=== PATIENT | male | born 1980 | race American Indian/Alaskan Native ===

== ENCOUNTER 2023-01-09 03:54 | Emergency (ER) | payer MEDICAID ==
[2023-01-09 04:05] VITALS: TEMP 98
--- NOTE | 2023-01-09 04:33 | ERPHSYRPT ---
- History of Present Illness Source: patient, EMS Exam Limitations: no limitations Patient Subjective Stated Complaint: pt states "I have been nauseous and feeling short of breath for a while. There is something wrong with my kidneys too." Triage Nursing Assessment: pt presents to ED via [facility], pt alert and oriented x3, skin pwd, pt c/o nausea and shortness of breath that has been on going for months, pt denies any pulmonary hx, pt is type 2 diabetic, partial L foot amputation noted, pt has hx of stage 4 kidney disease Timing/Duration: other (2 wks) Severity: moderate Modifying Factors: Improves With: nothing Associated Symptoms: nausea, vomiting, abdominal pain Hx Tetanus, Diphtheria Vaccination/Date Given: Yes Hx Influenza Vaccination/Date Given: No Hx Pneumococcal Vaccination/Date Given: No Immunizations Up to Date: Yes <NOHELIA ROBBINS - Last Filed: 01/09/23 07:03> <LUDA VILLA - Last Filed: 01/09/23 11:47> - History of Present Illness Time Seen by Provider: 01/09/23 07:00 Physician History: 42 yo WM from an out lying Co w N/V x 3wks, cough x 2wks, subjective fever, periumbilical pain rated 9/10, and a chronic R foot ulcer. pt has a h/o DM/CRI/diabetic retinopathy. He has mild dyspnea but denies chest pain/melena/hematochezia/diarrhea/dysuria/hematuria. Pt was seen in [facility] ER on 01/03/23 and was started on an antibiotic. (NOHELIA ROBBINS) Allergies/Adverse Reactions: No Known Drug Allergies Allergy (Verified 01/09/23 04:03) Home Medications: Aspirin 81 gm Chew [Baby Aspirin 81 mg Chew] 324 mg PO DAILY 01/09/23 [History] Clonidine HCl 0.1 mg [Clonidine 0.1 mg Tablet] 0.3 mg PO HS 01/09/23 [History] Dapagliflozin Propanediol [Farxiga] 10 mg PO DAILY 01/09/23 [History] Metformin HCl 500 mg [Glucophage 500 MG] 1,000 mg PO DAILY 01/09/23 [History] lisinopriL [Lisinopril] 20 mg PO BID 01/09/23 [History] Travel Risk - International Travel Have you traveled outside of the country in past 3 weeks: No - Coronavirus Screening Are you exhibiting any of the following symptoms?: No Close contact with a COVID-19 positive Pt in past 14-21 Days: No - Vaccine Status Have you recieved a Covid-19 vaccination: Yes 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: [employer] <NOHELIA ROBBINS - Last Filed: 01/09/23 07:03> - Review of Systems Constitutional: No Symptoms, Fever, Malaise Eyes: No Symptoms Ears, Nose, & Throat: No Symptoms Respiratory: No Symptoms, Cough, Dyspnea Cardiac: No Symptoms Abdominal/Gastrointestinal: Nausea, Vomiting, No Diarrhea Genitourinary Symptoms: No Symptoms Musculoskeletal: No Symptoms Skin: No Symptoms Neurological: No Symptoms Psychological: No Symptoms Endocrine: No Symptoms Hematologic/Lymphatic: No Symptoms Immunological/Allergic: No Symptoms <NOHELIA ROBBINS - Last Filed: 01/09/23 07:03> - Past Medical History Pertinent Past Medical History: Yes Neurological History: Migraines ENT History: Other Cardiac History: Hypertension Respiratory History: No Pertinent History Endocrine Medical History: Diabetes Type II History: Renal Disease Psycho-Social History: No Pertinent History Other Medical History: blind, stage 4 disease kidney - Past Surgical History Past Surgical History: Yes Neuro Surgical History: No Pertinent History Cardiac: No Pertinent History Respiratory: No Pertinent History Gastrointestinal: No Pertinent History Genitourinary: No Pertinent History Musculoskeletal: Amputation, Orthopedic Surgery Male Surgical History: No Pertinent History - Social History Smoking Status: Former smoker Exposure to second hand smoke: No Drug Use: none Patient Lives Alone: No <ROSENDONOHELIA - Last Filed: 01/09/23 07:03> - Physical Exam General Appearance: no apparent distress Eye Exam: PERRL/EOMI, eyes nml inspection Ears, Nose, Throat Exam: normal ENT inspection, TMs normal, pharynx normal, moist mucous membranes Neck Exam: normal inspection, non-tender, supple, full range of motion, No meningismus, No mass, No Brudzinski, No Kernig's, No carotid bruit Respiratory Exam: normal breath sounds, lungs clear, airway intact, No respiratory distress Cardiovascular Exam: regular rate/rhythm, normal heart sounds, normal peripheral pulses, capillary refill <2 sec, No murmur Gastrointestinal/Abdomen Exam: soft, normal bowel sounds, tenderness (Mild ning- umbilical TTP wo guarding or rebound) Back Exam: normal inspection, normal range of motion, No CVA tenderness, No vertebral tenderness Extremity Exam: other (R calcaneal foot ulcer w surrounding cellulitis) Neurologic Exam: alert, oriented x 3, cooperative, insurance claims examiner II-XII nml as tested, normal mood/affect, nml station & gait, sensation nml Skin Exam: normal color, warm, dry Lymphatic Exam: No adenopathy SpO2 Interpretation: normal SpO2: 100 O2 Delivery: Room Air <NOHELIA ROBBINS - Last Filed: 01/09/23 07:03> - Nursing Vital Signs Nursing Vital Signs: Initial Vital Signs Temperature 98.0 F 01/09/23 04:04 Pulse Rate 84 01/09/23 04:04 Respiratory Rate 19 01/09/23 04:04 Blood Pressure 170/94 01/09/23 04:04 O2 Sat by Pulse Oximetry 100 01/09/23 04:04 Pain Scale Pain Intensity 0 Hypertensive (NOHELIA ROBBINS) - Course EKG Interpreted by Me: RATE (NSR/Rate 82/Normal QT-QTc/[place]/No acute ST segment changes) <NOHELIA ROBBINS - Last Filed: 01/09/23 07:03> - Course Nursing assessment & vital signs reviewed: Yes - CT Exams Chest CT Interpretation: Tele-radiologist Report (2 cavitary lesions with mural soft tissue nodules in the left lung and differential diagnosis TB infection septic emboli pneumatocele with fungus ball, similar to aspergilloma and systemic diseases like polyangiitis few calcified mediastinal lymphadenopathy) Abdomen/Pelvis CT Interpretation: Tele-radiologist Report (Mild hepatomegaly with few scattered calcific foci, few scattered splenic calcific foci, healed old granulomatous infection.) <LUDA VILLA - Last Filed: 01/09/23 11:47> Ordered Tests: Active Orders 24 hr Category Date Time Status Telemetry q4h Care 01/09/23 08:18 Active ABDOMEN AND PELVIS W/0 CONTRAS [CT] Stat Exams 01/09/23 05:28 Completed CHEST 1 VIEW (PORTABLE) Stat Exams 01/09/23 04:26 Completed CHEST WITHOUT CONTRAST [CT] Stat Exams 01/09/23 05:27 Completed BLOOD CULTURE Stat Lab 01/09/23 06:13 Received CBC W DIFF Stat Lab 01/09/23 04:40 Completed CMP Stat Lab 01/09/23 04:40 Completed CMP Stat Lab 01/09/23 11:32 Received CULTURE,URINE Stat Lab 01/09/23 07:57 Received Lactic Acid Stat Lab 01/09/23 04:42 Completed POCT GLUCOSE Stat Lab 01/09/23 08:59 Completed POCT GLUCOSE Stat Lab 01/09/23 09:53 Completed POCT GLUCOSE Stat Lab 01/09/23 10:34 Completed TROPONIN Q4H Lab 01/09/23 04:40 Completed UA W/RFX UR CULTURE Stat Lab 01/09/23 07:57 Completed VBG [VENOUS BLOOD GAS] Stat Lab 01/09/23 08:15 Completed Medication Summary Generic Name Dose Route Start Last Admin Trade Name Valorie PRN Reason Stop Dose Admin Dextrose/Sodium Chloride 1,000 mls @ 200 mls/hr 01/09/23 08:30 01/09/23 08:28 Dextrose 5%-Ns Iv Solution 1000 Ml IV 02/08/23 08:29 200 mls/hr .Q5H JULIUS Administration INSULIN REGULAR IN 0.9 % NACL 100 unit in 100 mls @ 13.09 mls/hr 01/09/23 08:16 01/09/23 08:28 Myxredlin 100 Unit/100 Ml Bag IV 02/08/23 08:15 0.1 unit/kg/hr .Q7H39M PRN 13.09 mls/hr HYPERGLYCEMIA Administration Protocol 0.1 UNIT/KG/HR Discontinued Medications Generic Name Dose Route Start Last Admin Trade Name Valorie PRN Reason Stop Dose Admin Sodium Chloride 1,000 mls @ 999 mls/hr 01/09/23 05:24 01/09/23 07:53 Sodium Chloride 0.9% 1000 Ml IV 01/09/23 06:24 Infused .Q1H1M STA Infusion Sodium Chloride Confirm 01/09/23 05:34 Sodium Chloride 0.9% 1000 Ml Administered 01/09/23 05:35 Dose 1,000 mls @ ud .ROUTE .STK-MED ONE Piperacillin Sod/Tazobactam 100 mls @ 200 mls/hr 01/09/23 05:36 01/09/23 06:16 Sod 2.25 gm/ Sodium Chloride IV 01/09/23 06:05 200 mls/hr STAT ONE Administration Potassium Chloride 20 meq in 100 mls @ 50 mls/hr 01/09/23 08:18 01/09/23 08:28 Potassium Chloride 20 Meq In Water 100ml IV 01/09/23 10:17 50 mls/hr STAT ONE Administration Potassium Chloride Confirm 01/09/23 08:23 Potassium Chloride 20 Meq In Water 100ml Administered 01/09/23 08:24 Dose 100 mls @ ud IV .STK-MED ONE Lab/Rad Data: Laboratory Result Diagrams 01/09/23 04:40 01/09/23 04:40 Laboratory Results 01/09/23 01/09/23 01/09/23 Range/Units 10:34 09:53 08:59 WBC (4.0-10.5) x10^3/uL RBC (4.1-5.6) x10^6/uL Hgb (12.5-18.0) g/dL Hct (42-50) % MCV (78-100) fL MCH (26-32) pg MCHC (32-36) g/dL RDW (11.5-14.0) % Plt Count (150-450) x10^3/uL MPV (7.5-11.0) fL Gran % (36.0-66.0) % Immature Gran % (Auto) (0.00-0.4) % Nucleat RBC Rel Count (0.00-0.1) % Eos # (Auto) (0-0.5) x10^3/uL Immature Gran # (Auto) (0.00-0.03) x10^3u/L Absolute Lymphs (auto) (1.0-4.6) x10^3/uL Absolute Monos (auto) (0.0-1.3) x10^3/uL Absolute Nucleated RBC (0.00-0.01) x10^3u/L Lymphocytes % (24.0-44.0) % Monocytes % (0.0-12.0) % Eosinophils % (0.00-5.0) % Basophils % (0.0-0.4) % Absolute Granulocytes (1.4-6.9) x10^3/uL Basophils # (0-0.4) x10^3/uL pO2/FiO2 Ratio % VBG pH (7.32-7.42) VBG pCO2 at Pat Temp (42-55) mm/Hg VBG pO2 at Pat Temp (25-40) mm/Hg VBG HCO3 (22-28) meq/L VBG O2 Sat (Steven) (95-100) VBG Base Excess (-2.0-2.0) VBG Hemoglobin VBG Carboxyhemoglobin (0.0-6.9) % T HGB POC Potassium (3.5-5.1) Sodium (137-145) mmol/L Potassium (3.5-5.1) mmol/L Chloride (98-107) mmol/L Carbon Dioxide (22-30) mmol/L Anion Gap (5-15) MEQ/L BUN (9-20) mg/dL Creatinine (0.66-1.25) mg/dL Estimated GFR ML/MIN Glucose (74-106) mg/dL POC Glucometer 165 H 167 H 155 H (74 to 106) mg/dL Lactic Acid (0.4-2.0) Calcium (8.4-10.2) mg/dL Total Bilirubin (0.2-1.3) mg/dL AST (17-59) U/L ALT (0-50) U/L Alkaline Phosphatase (38-126) U/L Troponin I (0.000-0.034) ng/mL Serum Total Protein (6.3-8.2) g/dL Albumin (3.5-5.0) g/dL Urine Color (Yellow) Urine Appearance (Clear) Urine pH (4.6-8.0) Ur Specific [place] (1.005-1.030) Urine Protein (Negative) Urine Glucose (UA) (Negative) mg/dL Urine Ketones (Negative) Urine Blood (Negative) Urine Nitrite (Negative) Urine Bilirubin (Negative) Urine Urobilinogen (0.2) mg/dL Ur Leukocyte Esterase (Negative) U Hyaline Cast (Auto) (0-2) /LPF Urine Microscopic RBC (0-5) /HPF Urine Microscopic WBC (0-5) /HPF Ur Epithelial Cells (None Seen) /HPF Urine Bacteria (None Seen) /HPF Urine Culture Reflexed (NO) Influenza Type A Ag (NEGATIVE) Influenza Type B Ag (NEGATIVE) RSV (PCR) (NEGATIVE) SARS-CoV-2 (PCR) (NEGATIVE) 01/09/23 01/09/23 01/09/23 Range/Units 08:15 07:57 04:42 WBC (4.0-10.5) x10^3/uL RBC (4.1-5.6) x10^6/uL Hgb (12.5-18.0) g/dL Hct (42-50) % MCV (78-100) fL MCH (26-32) pg MCHC (32-36) g/dL RDW (11.5-14.0) % Plt Count (150-450) x10^3/uL MPV (7.5-11.0) fL Gran % (36.0-66.0) % Immature Gran % (Auto) (0.00-0.4) % Nucleat RBC Rel Count (0.00-0.1) % Eos # (Auto) (0-0.5) x10^3/uL Immature Gran # (Auto) (0.00-0.03) x10^3u/L Absolute Lymphs (auto) (1.0-4.6) x10^3/uL Absolute Monos (auto) (0.0-1.3) x10^3/uL Absolute Nucleated RBC (0.00-0.01) x10^3u/L Lymphocytes % (24.0-44.0) % Monocytes % (0.0-12.0) % Eosinophils % (0.00-5.0) % Basophils % (0.0-0.4) % Absolute Granulocytes (1.4-6.9) x10^3/uL Basophils # (0-0.4) x10^3/uL pO2/FiO2 Ratio 21.0 % VBG pH 7.38 (7.32-7.42) VBG pCO2 at Pat Temp 20 L* (42-55) mm/Hg VBG pO2 at Pat Temp 63 H (25-40) mm/Hg VBG HCO3 11.8 L* (22-28) meq/L VBG O2 Sat (Steven) 94.5 L (95-100) VBG Base Excess -11.9 L (-2.0-2.0) VBG Hemoglobin 8.1 VBG Carboxyhemoglobin 4.0 (0.0-6.9) % T HGB POC Potassium 5.5 H (3.5-5.1) Sodium (137-145) mmol/L Potassium (3.5-5.1) mmol/L Chloride (98-107) mmol/L Carbon Dioxide (22-30) mmol/L Anion Gap (5-15) MEQ/L BUN (9-20) mg/dL Creatinine (0.66-1.25) mg/dL Estimated GFR ML/MIN Glucose (74-106) mg/dL POC Glucometer (74 to 106) mg/dL Lactic Acid 1.1 (0.4-2.0) Calcium (8.4-10.2) mg/dL Total Bilirubin (0.2-1.3) mg/dL AST (17-59) U/L ALT (0-50) U/L Alkaline Phosphatase (38-126) U/L Troponin I (0.000-0.034) ng/mL Serum Total Protein (6.3-8.2) g/dL Albumin (3.5-5.0) g/dL Urine Color Yellow (Yellow) Urine Appearance Clear (Clear) Urine pH 5.5 (4.6-8.0) Ur Specific [place] 1.010 (1.005-1.030) Urine Protein 300 A (Negative) Urine Glucose (UA) 500 A (Negative) mg/dL Urine Ketones Negative (Negative) Urine Blood Small A (Negative) Urine Nitrite Negative (Negative) Urine Bilirubin Negative (Negative) Urine Urobilinogen 0.2 (0.2) mg/dL Ur Leukocyte Esterase Negative (Negative) U Hyaline Cast (Auto) 3-5 A (0-2) /LPF Urine Microscopic RBC 0-2 (0-5) /HPF Urine Microscopic WBC 3-5 (0-5) /HPF Ur Epithelial Cells None Seen (None Seen) /HPF Urine Bacteria None Seen (None Seen) /HPF Urine Culture Reflexed YES (NO) Influenza Type A Ag (NEGATIVE) Influenza Type B Ag (NEGATIVE) RSV (PCR) (NEGATIVE) SARS-CoV-2 (PCR) (NEGATIVE) 01/09/23 01/09/23 01/09/23 Range/Units 04:40 04:40 04:40 WBC (4.0-10.5) x10^3/uL RBC (4.1-5.6) x10^6/uL Hgb (12.5-18.0) g/dL Hct (42-50) % MCV (78-100) fL MCH (26-32) pg MCHC (32-36) g/dL RDW (11.5-14.0) % Plt Count (150-450) x10^3/uL MPV (7.5-11.0) fL Gran % (36.0-66.0) % Immature Gran % (Auto) (0.00-0.4) % Nucleat RBC Rel Count (0.00-0.1) % Eos # (Auto) (0-0.5) x10^3/uL Immature Gran # (Auto) (0.00-0.03) x10^3u/L Absolute Lymphs (auto) (1.0-4.6) x10^3/uL Absolute Monos (auto) (0.0-1.3) x10^3/uL Absolute Nucleated RBC (0.00-0.01) x10^3u/L Lymphocytes % (24.0-44.0) % Monocytes % (0.0-12.0) % Eosinophils % (0.00-5.0) % Basophils % (0.0-0.4) % Absolute Granulocytes (1.4-6.9) x10^3/uL Basophils # (0-0.4) x10^3/uL pO2/FiO2 Ratio % VBG pH (7.32-7.42) VBG pCO2 at Pat Temp (42-55) mm/Hg VBG pO2 at Pat Temp (25-40) mm/Hg VBG HCO3 (22-28) meq/L VBG O2 Sat (Steven) (95-100) VBG Base Excess (-2.0-2.0) VBG Hemoglobin VBG Carboxyhemoglobin (0.0-6.9) % T HGB POC Potassium (3.5-5.1) Sodium 132 L (137-145) mmol/L Potassium 4.7 (3.5-5.1) mmol/L Chloride 102 (98-107) mmol/L Carbon Dioxide 12 L* (22-30) mmol/L Anion Gap 22.3 H (5-15) MEQ/L BUN 74 H (9-20) mg/dL Creatinine 10.39 H (0.66-1.25) mg/dL Estimated GFR 5.8 ML/MIN Glucose 177 H (74-106) mg/dL POC Glucometer (74 to 106) mg/dL Lactic Acid (0.4-2.0) Calcium 8.4 (8.4-10.2) mg/dL Total Bilirubin 0.50 (0.2-1.3) mg/dL AST 21 (17-59) U/L ALT 21 (0-50) U/L Alkaline Phosphatase 210 H (38-126) U/L Troponin I < 0.012 (0.000-0.034) ng/mL Serum Total Protein 8.7 H (6.3-8.2) g/dL Albumin 3.8 (3.5-5.0) g/dL Urine Color (Yellow) Urine Appearance (Clear) Urine pH (4.6-8.0) Ur Specific [place] (1.005-1.030) Urine Protein (Negative) Urine Glucose (UA) (Negative) mg/dL Urine Ketones (Negative) Urine Blood (Negative) Urine Nitrite (Negative) Urine Bilirubin (Negative) Urine Urobilinogen (0.2) mg/dL Ur Leukocyte Esterase (Negative) U Hyaline Cast (Auto) (0-2) /LPF Urine Microscopic RBC (0-5) /HPF Urine Microscopic WBC (0-5) /HPF Ur Epithelial Cells (None Seen) /HPF Urine Bacteria (None Seen) /HPF Urine Culture Reflexed (NO) Influenza Type A Ag NEGATIVE (NEGATIVE) Influenza Type B Ag NEGATIVE (NEGATIVE) RSV (PCR) NEGATIVE (NEGATIVE) SARS-CoV-2 (PCR) NEGATIVE (NEGATIVE) 01/09/23 Range/Units 04:40 WBC 19.5 H (4.0-10.5) x10^3/uL RBC 2.97 L (4.1-5.6) x10^6/uL Hgb 8.1 L (12.5-18.0) g/dL Hct 25.4 L (42-50) % MCV 85.5 (78-100) fL MCH 27.3 (26-32) pg MCHC 31.9 L (32-36) g/dL RDW 14.6 H (11.5-14.0) % Plt Count 684 H (150-450) x10^3/uL MPV 9.0 (7.5-11.0) fL Gran % 81.8 H (36.0-66.0) % Immature Gran % (Auto) 1.4 H (0.00-0.4) % Nucleat RBC Rel Count 0.0 (0.00-0.1) % Eos # (Auto) 0.26 (0-0.5) x10^3/uL Immature Gran # (Auto) 0.28 H (0.00-0.03) x10^3u/L Absolute Lymphs (auto) 1.71 (1.0-4.6) x10^3/uL Absolute Monos (auto) 1.22 (0.0-1.3) x10^3/uL Absolute Nucleated RBC 0.00 (0.00-0.01) x10^3u/L Lymphocytes % 8.8 L (24.0-44.0) % Monocytes % 6.3 (0.0-12.0) % Eosinophils % 1.3 (0.00-5.0) % Basophils % 0.4 (0.0-0.4) % Absolute Granulocytes 15.97 H (1.4-6.9) x10^3/uL Basophils # 0.07 (0-0.4) x10^3/uL pO2/FiO2 Ratio % VBG pH (7.32-7.42) VBG pCO2 at Pat Temp (42-55) mm/Hg VBG pO2 at Pat Temp (25-40) mm/Hg VBG HCO3 (22-28) meq/L VBG O2 Sat (Steven) (95-100) VBG Base Excess (-2.0-2.0) VBG Hemoglobin VBG Carboxyhemoglobin (0.0-6.9) % T HGB POC Potassium (3.5-5.1) Sodium (137-145) mmol/L Potassium (3.5-5.1) mmol/L Chloride (98-107) mmol/L Carbon Dioxide (22-30) mmol/L Anion Gap (5-15) MEQ/L BUN (9-20) mg/dL Creatinine (0.66-1.25) mg/dL Estimated GFR ML/MIN Glucose (74-106) mg/dL POC Glucometer (74 to 106) mg/dL Lactic Acid (0.4-2.0) Calcium (8.4-10.2) mg/dL Total Bilirubin (0.2-1.3) mg/dL AST (17-59) U/L ALT (0-50) U/L Alkaline Phosphatase (38-126) U/L Troponin I (0.000-0.034) ng/mL Serum Total Protein (6.3-8.2) g/dL Albumin (3.5-5.0) g/dL Urine Color (Yellow) Urine Appearance (Clear) Urine pH (4.6-8.0) Ur Specific [place] (1.005-1.030) Urine Protein (Negative) Urine Glucose (UA) (Negative) mg/dL Urine Ketones (Negative) Urine Blood (Negative) Urine Nitrite (Negative) Urine Bilirubin (Negative) Urine Urobilinogen (0.2) mg/dL Ur Leukocyte Esterase (Negative) U Hyaline Cast (Auto) (0-2) /LPF Urine Microscopic RBC (0-5) /HPF Urine Microscopic WBC (0-5) /HPF Ur Epithelial Cells (None Seen) /HPF Urine Bacteria (None Seen) /HPF Urine Culture Reflexed (NO) Influenza Type A Ag (NEGATIVE) Influenza Type B Ag (NEGATIVE) RSV (PCR) (NEGATIVE) SARS-CoV-2 (PCR) (NEGATIVE) <NOHELIA ROBBINS - Last Filed: 01/09/23 07:03> - Progress Progress: improved Counseled pt/family regarding: lab results, diagnosis, rad results <LUDA VILLA - Last Filed: 01/09/23 11:47> - Progress Progress Note: 01/09/23 07:03 Care turned over to Dr. Villa at 7AM w CT chest/abdomen-pelvis pending (NOHELIA ROBBINS) Patient is a 42-year-old male history of diabetes presents to our ED feeling unwell shortness of breath. Patient actually seen by previous physician. CT abdomen pelvis ordered results pending. Patient endorsed to Dr. Villa at approximately [address] Villa advised to follow-up on pending imaging studies and make final disposition. Case discussed with hospitalist at [facility]. Discussion occurred at 9:03 AM. 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 They currently do not have rheumatology available to see our patient. 01/09/23 09:06 Case discussed with hospitalist at [facility], Karel Perez who accepts transfer pending consultation with nephrology. Case discussed with percussion instrument repairer at 11:35 AM. excepts transfer to the ICU. Plan of care discussed with patient. Patient agrees to transfer to [facility] for further evaluation and treatment. Patient is a 42-year-old male history of diabetes on a flows and presents to our ED feeling unwell and shortness of breath. Work-up reveals a euglycemic DKA. Patient treated accordingly. CT chest reveals cavitary lesions concerning for possible TB/aspergilloma versus septic emboli. Antibiotic administered per previous physician. Complex of data reviewed and analyzed is high, severe exacerbation of chronic condition threatening bodily function Complex data reviewed and analyzed is extensive. Test ordered reviewed and analyzed. Case discussed with hospitalist and percussion instrument repairer Risk of complication and or risk morbidity/mortality patient management is high. Patient will be transferred to higher level of care. Patient will be transferred to [facility] for further evaluation and treatment. Vital stable. Plan of care established for shared decision making. Patient voices no other complaints or concerns at this time. Portions of this note were created with voice recognition technology. There may be grammatical, spelling, punctuation or sound alike errors 01/09/23 11:43 (LUDA VILLA) <NOHELIA ROBBINS - Last Filed: 01/09/23 07:03> - Departure Departure Disposition: Transfer Critical Care Time: No <LUDA VILLA - Last Filed: 01/09/23 11:47> - Departure Clinical Impression: Renal failure, Anemia, Diabetic foot ulcer, Cavitary lesion of lung, Calcified mediastinal lymphadenopathy, Euglycemic DKA, Hepatomegaly Condition: Stable Referrals: RENEE DA SILVA MD [Primary Care Provider] - Follow up/PCP as directed
[2023-01-09 04:49] LABS: Absolute Neutrophil Ct (ANC) 15.97 x10^3/uL (1.4-6.9); BASOPHIL % 0.4 % (0.0-0.4); Basophil (Absolute #) 0.07 x10^3/uL (0-0.4); Eosinophil % 1.3 % (0.00-5.0); Eosinophil (Absolute #) 0.26 x10^3/uL (0-0.5); Hematocrit 25.4 % (42-50); Hemoglobin 8.1 g/dL (12.5-18.0); IMMATURE GRAN # 0.28 x10^3u/L (0.00-0.03); IMMATURE GRAN % 1.4 % (0.00-0.4); Lymphocyte (Absolute #) 1.71 x10^3/uL (1.0-4.6); Lymphocytes % 8.8 % (24.0-44.0); Mean Cell Volume 85.5 fL (78-100); Mean Corpuscular Hemoglobin 27.3 pg (26-32); Mean Corpuscular Hgb Concent. 31.9 g/dL (32-36); Monocyte (Absolute #) 1.22 x10^3/uL (0.0-1.3); Monocytes % 6.3 % (0.0-12.0); Neutrophil % 81.8 % (36.0-66.0); Platelet Count 684 x10^3/uL (150-450); Red Blood Count 2.97 x10^6/uL (4.1-5.6); Red Cell Distribution Width 14.6 % (11.5-14.0); White Blood Count 19.5 x10^3/uL (4.0-10.5)
[2023-01-09 05:08] LABS: ALBUMIN 3.8 g/dL (3.5-5.0); ANION GAP 22.3 MEQ/L (5-15); BILIRUBIN,TOTAL 0.5 mg/dL (0.2-1.3); Calcium 8.4 mg/dL (8.4-10.2); Creatinine 1 10.39 mg/dL (0.66-1.25); EST GLOMERULAR FILTRATION RATE 5.8 ML/MIN; Potassium 4.7 mmol/L (3.5-5.1); Total Protein 8.7 g/dL (6.3-8.2)
[2023-01-09] MEDS ORDERED: Sodium Chloride 0.9% 1000 ML 1,000 ML IV STA (05:24)
[2023-01-09 05:26] LABS: INFLUENZA A NEGATIVE (NEGATIVE); INFLUENZA B NEGATIVE (NEGATIVE); RESPIRATORY SYNCTIAL VIRUS NEGATIVE (NEGATIVE); SARS-CoV-2 Xpert Express NEGATIVE (NEGATIVE)
[2023-01-09] MEDS ORDERED: Sodium Chloride 0.9% 1000 ML 1,000 ML ONE (05:34)
[2023-01-09] MEDS ORDERED: Piperacillin/Tazobactam 2.25 GM 2.25 GM in Sodium Chloride 100ML MINI-BAG PLUS 100 ML IV ONE (05:36)
--- NOTE | 2023-01-09 07:21 | XRAY ---
CLINICAL HISTORY:abdominal pain COMPARISON:None. TECHNIQUE:CT of the abdomen and pelvis was performed with axial images as well as sagittal and coronal reconstruction images without intravenous contrast. DLP 1201 mGy*cm FINDINGS: The liver is enlarged in size 18 cm with normal morphology and appears unremarkable with no intrahepatic or extrahepatic bile duct dilation. few scattered calcific foci are noted. Unremarkable appearing gallbladder with no stone wall thickening or pericholecystic inflammatory changes or fluid. Unremarkable appearing pancreas. No pancreatic mass or ductal dilatation is seen. An unremarkable appearing spleen with few calcific foci is seen yet no definite focal lesions detected. The adrenal glands are normal. The kidneys appear unremarkable with no cysts masses or hydronephrosis. The ureters are normal with no stones. Unremarkable abdominal aorta without specific evidence of aneurysm or dissection. IVC is normal. The stomach appears unremarkable. Unremarkable appearing duodenum. Small Bowel and colon are non-distended with no abnormality No free air and no ascites. No free intraperitoneal air is seen. The bladder is unremarkable with no stones. The prostate is unremarkable. Mild degenerative changes were seen in the visualized spine. No other bony abnormality was detected. IMPRESSION: 1. Mild hepatomegaly with few scattered calcific foci 2. Few scattered splenic calcific foci. 3. Denoting sequela of healed old granulomatous infection. 4. The rest of the CT scan abdomen and pelvis is unremarkable. Electronically Signed by: Shavonne Damon MD. (01/09/2023 06:19:36 PRESS TENDER SMOKE SIGNAL)
--- NOTE | 2023-01-09 07:45 | XRAY ---
CLINICAL HISTORY:cough COMPARISON:None. TECHNIQUE:Contiguous 3.[address] images of the chest were acquired without administration of intravenous contrast. Coronal and sagittal reconstructions were obtained. CTD 15.6 mGy,DLP 1201 mGy cm. FINDINGS: A few small calcified foci were noted in the mediastinum and hilar lymph nodes the largest one is measuring about 2.8 x 2 cm seen in the subcarinal region suggestive of calcified lymph nodes. The scanned pulmonary parenchyma shows no definite consolidation/collapse. There is a 1.5 cm thin walled cavitary lesion with a mural soft tissue nodule in the inferior lingula segment of the left lung. There is another cavitary lesion with a mural nodule in the superior segment of the left lower lobe, measuring 3 cm. No free or encysted pleural effusion. Heart size is normal and there is no pericardial effusion. Few calcific foci are seen along the ascending and aortic arch. No pathologically enlarged axillary lymph node was identified. There is no definite mass lesion in the chest wall. Mild degenerative changes were seen in the visualized spine, and no lytic/sclerotic lesion was seen in the visualized bones to suggest bony metastasis. IMPRESSION: 1. Two cavitary lesions with mural soft tissue nodules in the left lung; In differential diagnosis; TB infection, septic emboli, pneumatocele with fungus ball, like aspergilloma, and systemic disease like polyangiitis should be in line. Please correlate clinically. 2. Few calcified mediastinal and hilar lymph nodes suggestive of sequelae of healed old granulomatous infection. 3. The rest of the CT study for the chest is unremarkable. Electronically Signed by: Shavonne Damon MD. (01/09/2023 06:43:04 ELECTRIC WELDER HELPER)
[2023-01-09] MEDS ORDERED: MYXREDLIN 100 UNIT/100 ML BAG 100 UNIT/100 ML PLAST..BAG IV PRN (08:16)
[2023-01-09] MEDS ORDERED: POTASSIUM CHLORIDE 20 mEq IN WATER 100ML 20 MEQ/100 ML BAG IV ONE (08:18)
[2023-01-09 08:23] LABS: VBG BASE EXCESS -11.9 (-2.0-2.0); VBG HCO3- 11.8 meq/L (22-28); VBG HEMOGLOBIN 8.1; VBG O2 SATURATION 94.5 (95-100); VBG POTASSIUM 5.5 (3.5-5.1); VBG pH 7.38 (7.32-7.42)
[2023-01-09] MEDS ORDERED: POTASSIUM CHLORIDE 20 mEq IN WATER 100ML 100 ML IV ONE (08:23)
[2023-01-09] MEDS ORDERED: MYXREDLIN 100 UNIT/100 ML BAG 100 UNIT/100 ML PLAST..BAG IV ONE (08:23)
[2023-01-09] MEDS ORDERED: Dextrose 5%-NS IV Solution 1000 ML 1,000 ML IV ONE (08:23)
[2023-01-09] MEDS ORDERED: Dextrose 5%-NS IV Solution 1000 ML 1,000 ML IV SCH (08:30)
--- NOTE | 2023-01-09 08:41 | XRAY ---
Indication: Dyspnea. Comparison: None Portable chest demonstrates small left mid lung nodule further detailed on same-day CT chest exam. Remaining heart, lungs, and bony thorax normal.
[2023-01-09 08:50] LABS: Appearance Clear (Clear); Bacteria None Seen /HPF (None Seen); Bilirubin Negative (Negative); Blood Small (Negative); Epithelial Cells None Seen /HPF (None Seen); Glucose, Urine 500 mg/dL (Negative); Ketones Negative (Negative); Leukocyte Esterase Negative (Negative); Nitrite Negative (Negative); Ph 5.5 (4.6-8.0); Protein,Urine Dip 300 (Negative); RBC 0-2 /HPF (0-5); Urobilinogen 0.2 mg/dL (0.2)
[2023-01-09 08:51] LABS: ADD URINE CULTURE? YES (NO)
[2023-01-09 11:45] LABS: ALBUMIN 3.8 g/dL (3.5-5.0); ANION GAP 22.6 MEQ/L (5-15); BILIRUBIN,TOTAL 0.5 mg/dL (0.2-1.3); Calcium 8.4 mg/dL (8.4-10.2); Creatinine 1 10.08 mg/dL (0.66-1.25); Potassium 4.9 mmol/L (3.5-5.1); Total Protein 8.5 g/dL (6.3-8.2)
[2023-01-09 13:12] LABS: PHOSPHOROUS 7.9 mg/dL (2.5-4.5)
[2023-01-09] MEDS ORDERED: Lactated Ringers 1,000 ML IV ONE (14:52)
[2023-01-09] MEDS ORDERED: Lactated Ringers 1,000 ML IV SCH (15:00)
[2023-01-09 15:07] VITALS: O2SAT 98
[2023-01-09 16:03] VITALS: BP 178/100; PULSE 78; RESP 18
== END 2023-01-09 16:03 | disposition short-term general hospital (02) ==
LOC: ED 03:54
DX: E11.10 Type 2 diabetes mellitus with ketoacidosis without coma (principal); E11.22 Type 2 diabetes mellitus with diabetic chronic kidney disease; I12.9 Hypertensive chronic kidney disease with stage 1 through stage 4 chronic kidney disease, or unspecified chronic kidney disease; N18.4 Chronic kidney disease, stage 4 (severe); D64.9 Anemia, unspecified; A15.0 Tuberculosis of lung; I89.8 Other specified noninfective disorders of lymphatic vessels and lymph nodes; R16.0 Hepatomegaly, not elsewhere classified; R11.2 Nausea with vomiting, unspecified; R05.9 Cough, unspecified; R10.33 Periumbilical pain; E11.319 Type 2 diabetes mellitus with unspecified diabetic retinopathy without macular edema; Z79.84 Long term (current) use of oral hypoglycemic drugs; Z79.899 Other long term (current) drug therapy
CPT/HCPCS: 0241U; 36000; 36415; 71045; 71250; 74176; 80053; 81001; 82010; 82805; 82947; 83605; 83735; 84100; 84484; 85025; 87040; 87086; 96360; 96361; 96365; 96367; 99285; J2543; J3480

== ENCOUNTER 2023-04-01 21:48 | Emergency (ER) | payer SELFPAY ==
[2023-04-01 21:57] VITALS: TEMP 97.9
[2023-04-01] MEDS ORDERED: NORCO 7.5/325 MG TAB PO ONE (22:19)
--- NOTE | 2023-04-01 22:19 | ERPHSYRPT ---
- History of Present Illness Time Seen by Provider: 04/01/23 22:14 Source: patient, family Patient Subjective Stated Complaint: I was getting in the car, I put my left leg in the car and my leg gave out on me and I fell onto my right knee. Triage Nursing Assessment: pt assisted out of car by Lisset Urbano EMT-P and brought into ER via wheelchair. at bedside, and was assisted into hospital via wheelchair by this nurse. Pt c/o pain to low back as he fell tonight. Pt was getting in the car with his left leg and his left knee gave out and he fell onto his rt knee and back. Pt c/o weakness x3 days. No swelling or tenderness noted to Rt knee. Physician History: 43 years old male with past medical history of type 2 diabetes, hypertension, chronic kidney disease. Diabetic retinopathy, legally blind. The patient is brought by his to the emergency room because of a chief complaint of a fall and back pain. The patient stated that he has been feeling generally weak for the last 3 days. Today while he was trying to get in his car he felt that his left knee gave away and he fell backward in the parking lot. Currently he is complaining of some left lower back pain mild not severe. He is denying any head trauma, no neck pain, no pain to his upper or lower extremities. No chest pain or shortness of breath or coughing. No fever or chills. No abdominal pain nausea or vomiting. The patient states that his sugars has been well-controlled lately. Allergies/Adverse Reactions: No Known Drug Allergies Allergy (Verified 04/01/23 22:08) Home Medications: Aspirin 81 gm Chew [Baby Aspirin 81 mg Chew] 324 mg PO DAILY 01/09/23 [History] Clonidine HCl 0.1 mg [Clonidine 0.1 mg Tablet] 0.3 mg PO BID 01/09/23 [History] Dapagliflozin Propanediol [Farxiga] 10 mg PO DAILY 01/09/23 [History] lisinopriL [Lisinopril] 40 mg PO DAILY 01/09/23 [History] Atorvastatin Calcium 40 mg PO HS 04/01/23 [History] Ciprofloxacin [Cipro 500 MG] 250 mg PO BID 04/01/23 [History] Hx Tetanus, Diphtheria Vaccination/Date Given: Yes Hx Influenza Vaccination/Date Given: No Hx Pneumococcal Vaccination/Date Given: No Immunizations Up to Date: No Travel Risk - International Travel Have you traveled outside of the country in past 3 weeks: No - Coronavirus Screening Are you exhibiting any of the following symptoms?: No Close contact with a COVID-19 positive Pt in past 14-21 Days: No - Vaccine Status Have you recieved a Covid-19 vaccination: Yes [employer]: [employer] - Vaccination Dates Date of 2cond Vaccination (if applicable): . - Review of Systems Constitutional: Weakness Eyes: No Symptoms, Other (Legally blind both eyes secondary to diabetic retinopathy) Ears, Nose, & Throat: No Symptoms Respiratory: No Cough, No Dyspnea Cardiac: No Chest Pain, No Edema, No Syncope Abdominal/Gastrointestinal: No Abdominal Pain, No Nausea, No Vomiting, No Diarrhea Genitourinary Symptoms: No Dysuria Musculoskeletal: Back Pain, No Neck Pain Skin: No Rash Neurological: No Dizziness, No Focal Weakness, No Sensory Changes Psychological: No Symptoms Endocrine: No Symptoms All Other Systems: Reviewed and Negative - Past Medical History Pertinent Past Medical History: Yes Neurological History: No Pertinent History ENT History: Other Cardiac History: High Cholesterol, Hypertension Respiratory History: No Pertinent History Endocrine Medical History: Diabetes Type II GI Medical History: No Pertinent History History: Renal Disease Psycho-Social History: No Pertinent History Other Medical History: blind, stage 5 disease kidney - Past Surgical History Past Surgical History: Yes Neuro Surgical History: No Pertinent History Cardiac: No Pertinent History Respiratory: No Pertinent History Gastrointestinal: No Pertinent History Genitourinary: No Pertinent History Musculoskeletal: Amputation, Orthopedic Surgery, Other Male Surgical History: No Pertinent History Other Surgical History: 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 surgery to wounds of bilat feet due to diabetes - Social History Smoking Status: Former smoker Exposure to second hand smoke: Yes Drug Use: none Patient Lives Alone: No - Nursing Vital Signs Nursing Vital Signs: Initial Vital Signs Temperature 97.9 F 04/01/23 21:55 Pulse Rate 84 04/01/23 21:55 Respiratory Rate 20 04/01/23 21:55 Blood Pressure 178/91 04/01/23 21:55 O2 Sat by Pulse Oximetry 99 04/01/23 21:55 Pain Scale Pain Intensity 0 - Physical Exam General Appearance: no apparent distress, alert Eye Exam: PERRL/EOMI, eyes nml inspection Neck Exam: normal inspection, non-tender, supple, full range of motion, No meningismus, No midline tenderness Respiratory Exam: normal breath sounds, lungs clear, No respiratory distress Cardiovascular Exam: regular rate/rhythm, normal heart sounds Gastrointestinal Exam: soft, No tenderness, No mass Back Exam: normal inspection, normal range of motion, other (Left lower paralumbar tenderness and left sacroiliac joint tenderness. Leg raising test is negative in both lower extremities.) Extremity Exam: normal inspection, normal range of motion, No calf tenderness, No pedal edema Neurologic Exam: alert, oriented x 3, cooperative, health/safety job titles II-XII nml as tested, normal mood/affect, nml station & gait, sensation nml, No motor deficits Skin Exam: normal color, warm, dry, No rash SpO2: 99 - Course Nursing assessment & vital signs reviewed: Yes EKG Interpreted by Me: RATE (76), Sinus Rhythm, Q-wave (III, VF), Other (Peaked T-Waves.) Ordered Tests: Active Orders 24 hr Category Date Time Status EKG-ER Only STAT Care 04/01/23 23:08 Active BMP Stat Lab 04/02/23 01:06 Completed CBC W DIFF Stat Lab 04/01/23 22:35 Completed CMP Stat Lab 04/01/23 22:35 Completed MG [MAGNESIUM] Stat Lab 04/01/23 22:35 Completed POCT GLUCOSE Stat Lab 04/02/23 01:58 Completed UA W/RFX UR CULTURE Stat Lab 04/01/23 22:15 Ordered Respiratory Therapy Assessment DAILY RT 04/02/23 01:52 Active Medication Summary Discontinued Medications Generic Name Dose Route Start Last Admin Trade Name Valorie PRN Reason Stop Dose Admin Hydrocodone Bitart/Acetaminophen 1 tab 04/01/23 22:19 04/01/23 22:44 Hydrocodone /Apap 7.5/325 Mg 1 Each Tablet PO 04/01/23 22:20 1 tab STAT ONE Administration Albuterol Sulfate 5 mg 04/02/23 01:36 04/02/23 01:48 Albuterol Sulfate 2.5 Mg/3 Ml Neb IH 04/02/23 01:37 5 mg STAT ONE Administration Albuterol Sulfate Confirm 04/02/23 01:42 Albuterol Sulfate 2.5 Mg/3 Ml Neb Administered 04/02/23 01:43 Dose 2.5 mg IH .STK-MED ONE Albuterol Sulfate Confirm 04/02/23 01:50 Albuterol Sulfate 2.5 Mg/3 Ml Neb Administered 04/02/23 01:51 Dose 2.5 mg IH .STK-MED ONE Calcium Gluconate 1,000 mg 04/01/23 23:07 04/01/23 23:44 Calcium Gluconate 1000 Mg/10 Ml Vial IV 04/01/23 23:08 1,000 mg STAT ONE Administration Calcium Gluconate Confirm 04/01/23 23:28 Calcium Gluconate 1000 Mg/10 Ml Vial Administered 04/01/23 23:29 Dose 1,000 mg IV .STK-MED ONE Dextrose 50 ml 04/01/23 23:09 04/01/23 23:46 Dextrose 50%-Water 50 Ml Abboject IV 04/01/23 23:10 50 ml STAT ONE Administration Dextrose Confirm 04/01/23 23:29 Dextrose 50%-Water 50 Ml Abboject Administered 04/01/23 23:30 Dose 50 ml IV .STK-MED ONE Dextrose Confirm 04/01/23 23:45 Dextrose 50%-Water 50 Ml Abboject Administered 04/01/23 23:46 Dose 50 ml IV .STK-MED ONE Dextrose 50 ml 04/02/23 01:33 04/02/23 02:03 Dextrose 50%-Water 50 Ml Abboject IV 04/02/23 01:34 50 ml STAT ONE Administration Insulin Human Regular 10 unit 04/01/23 23:10 04/01/23 23:37 Insulin Regular, Human 1 Unit IV 04/01/23 23:11 10 unit STAT ONE Administration Insulin Human Regular Confirm 04/01/23 23:29 Insulin Regular, Human 1 Unit Administered 04/01/23 23:30 Dose 10 unit .ROUTE .STK-MED ONE Insulin Human Regular 10 unit 04/02/23 01:33 04/02/23 02:01 Insulin Regular, Human 1 Unit IV 04/02/23 01:34 10 unit STAT ONE Administration Insulin Human Regular Confirm 04/02/23 01:51 Insulin Regular, Human 1 Unit Administered 04/02/23 01:52 Dose 10 unit .ROUTE .STK-MED ONE Sodium Bicarbonate 50 meq 04/01/23 23:08 04/01/23 23:41 Sodium Bicarbonate 1 Meq/Ml 50ml Vial IV 04/01/23 23:09 50 meq EVENING MEAL STA Administration Sodium Bicarbonate Confirm 04/01/23 23:29 Sodium Bicarbonate 1 Meq/Ml 50ml Vial Administered 04/01/23 23:30 Dose 50 meq .ROUTE .STK-MED ONE Sodium Bicarbonate 50 meq 04/02/23 01:34 04/02/23 02:02 Sodium Bicarbonate 1 Meq/Ml 50ml Vial IV 04/02/23 01:35 50 meq ONCE STA Administration Sodium Bicarbonate Confirm 04/02/23 01:49 Sodium Bicarbonate 1 Meq/Ml 50ml Vial Administered 04/02/23 01:50 Dose 50 meq .ROUTE .STK-MED ONE Sodium Polystyrene Sulfonate 60 g 04/02/23 01:32 04/02/23 02:38 Sodium Polystyrene Sulfonate 15 G/60 Ml Bottle PO 04/02/23 01:33 60 g STAT ONE Administration Sodium Polystyrene Sulfonate Confirm 04/02/23 01:49 Sodium Polystyrene Sulfonate 15 G/60 Ml Bottle Administered 04/02/23 01:50 Dose 30 g .ROUTE .STK-MED ONE Lab/Rad Data: Laboratory Result Diagrams 04/01/23 22:35 04/02/23 01:06 Laboratory Results 04/02/23 04/02/23 04/01/23 Range/Units 01:58 01:06 22:35 WBC (4.0-10.5) x10^3/uL RBC (4.1-5.6) x10^6/uL Hgb (12.5-18.0) g/dL Hct (42-50) % MCV (78-100) fL MCH (26-32) pg MCHC (32-36) g/dL RDW (11.5-14.0) % Plt Count (150-450) x10^3/uL MPV (7.5-11.0) fL Gran % (36.0-66.0) % Immature Gran % (Auto) (0.00-0.4) % Nucleat RBC Rel Count (0.00-0.1) % Eos # (Auto) (0-0.5) x10^3/uL Immature Gran # (Auto) (0.00-0.03) x10^3u/L Absolute Lymphs (auto) (1.0-4.6) x10^3/uL Absolute Monos (auto) (0.0-1.3) x10^3/uL Absolute Nucleated RBC (0.00-0.01) x10^3u/L Lymphocytes % (24.0-44.0) % Monocytes % (0.0-12.0) % Eosinophils % (0.00-5.0) % Basophils % (0.0-0.4) % Absolute Granulocytes (1.4-6.9) x10^3/uL Basophils # (0-0.4) x10^3/uL Sodium 134 L 133 L (137-145) mmol/L Potassium 7.1 H* 7.1 H* (3.5-5.1) mmol/L Chloride 109 H 107 (98-107) mmol/L Carbon Dioxide 12 L* 10 L* (22-30) mmol/L Anion Gap 19.8 H 23.9 H (5-15) MEQ/L BUN 101 H 102 H (9-20) mg/dL Creatinine 7.11 H 7.31 H (0.66-1.25) mg/dL Estimated GFR 9.0 8.8 ML/MIN Glucose 123 H 193 H (74-106) mg/dL POC Glucometer 144 H (74 to 106) mg/dL Calcium 8.8 8.6 (8.4-10.2) mg/dL Magnesium 1.5 L (1.6-2.3) mg/dL Total Bilirubin 0.20 (0.2-1.3) mg/dL AST 36 (17-59) U/L ALT 38 (0-50) U/L Alkaline Phosphatase 103 (38-126) U/L Serum Total Protein 8.8 H (6.3-8.2) g/dL Albumin 4.1 (3.5-5.0) g/dL 04/01/23 Range/Units 22:35 WBC 14.7 H (4.0-10.5) x10^3/uL RBC 3.22 L (4.1-5.6) x10^6/uL Hgb 8.8 L (12.5-18.0) g/dL Hct 28.5 L (42-50) % MCV 88.5 (78-100) fL MCH 27.3 (26-32) pg MCHC 30.9 L (32-36) g/dL RDW 14.7 H (11.5-14.0) % Plt Count 495 H (150-450) x10^3/uL MPV 9.3 (7.5-11.0) fL Gran % 71.2 H (36.0-66.0) % Immature Gran % (Auto) 0.5 H (0.00-0.4) % Nucleat RBC Rel Count 0.0 (0.00-0.1) % Eos # (Auto) 0.66 H (0-0.5) x10^3/uL Immature Gran # (Auto) 0.08 H (0.00-0.03) x10^3u/L Absolute Lymphs (auto) 2.09 (1.0-4.6) x10^3/uL Absolute Monos (auto) 1.29 (0.0-1.3) x10^3/uL Absolute Nucleated RBC 0.00 (0.00-0.01) x10^3u/L Lymphocytes % 14.2 L (24.0-44.0) % Monocytes % 8.8 (0.0-12.0) % Eosinophils % 4.5 (0.00-5.0) % Basophils % 0.8 (0.0-0.4) % Absolute Granulocytes 10.45 H (1.4-6.9) x10^3/uL Basophils # 0.12 (0-0.4) x10^3/uL Sodium (137-145) mmol/L Potassium (3.5-5.1) mmol/L Chloride (98-107) mmol/L Carbon Dioxide (22-30) mmol/L Anion Gap (5-15) MEQ/L BUN (9-20) mg/dL Creatinine (0.66-1.25) mg/dL Estimated GFR ML/MIN Glucose (74-106) mg/dL POC Glucometer (74 to 106) mg/dL Calcium (8.4-10.2) mg/dL Magnesium (1.6-2.3) mg/dL Total Bilirubin (0.2-1.3) mg/dL AST (17-59) U/L ALT (0-50) U/L Alkaline Phosphatase (38-126) U/L Serum Total Protein (6.3-8.2) g/dL Albumin (3.5-5.0) g/dL - Progress Progress: unchanged Progress Note: 04/01/23 22:18 43 years old male with past medical history of type 2 diabetes, hypertension, chronic kidney disease. Diabetic retinopathy, legally blind. The patient is brought by his to the emergency room because of a chief complaint of a fall and back pain. The patient stated that he has been feeling generally weak for the last 3 days. Today while he was trying to get in his car he felt that his left knee gave away and he fell backward in the parking lot. Currently he is complaining of some left lower back pain mild not severe. He is denying any head trauma, no neck pain, no pain to his upper or lower extremities. No chest pain or shortness of breath or coughing. No fever or chills. No abdominal pain nausea or vomiting. The patient states that his sugars has been well-controlled lately. Emergency room course and medical decision making. The patient is rating his back pain as mild he has tenderness in the left lower paralumbar area no bruises or swelling or deformities. He is not interested in having x-rays of his back. For his generalized weakness will check CBC, CMP, UA, serum magnesium. For his back pain we will give him [place] 10 mg oral dose. 11:00 PM wallowedThe patient's BUN is elevated 102, creatinine 7.3, 133 potassium 7.1. His white count 12.4, hemoglobin 8.8, hematocrit 28.5. The patient hyperkalemia will be treated with calcium gluconate IV, sodium bicarbonate 50 mill equivalent IV, D50 and 10 units of regular insulin IV. Will check an EKG prior to the above treatment. EKG, NSR 76 BPM, peaked, tented T-waves , Q-waves VIII, VF Kayexylate 30gm PO X1 04/02/23 01:59 The patient remains stable, however his repeated labs an hour after treating his hyperkalemia remains almost the same , with potassium at 7.1, bicarb 12, BUN 101 and creatinine 7.11. His glucose 123. The patient will be given a repeated treatment for his hyperkalemia with D50 and IV insulin, sodium bicarb, albuterol neb treatment. The patient usually follows up with a honing machine operator semiautomatic at [facility]. The case is discussed with the nurse practitioner practitioner Molly who is with the Dr. Shi ? the Wildlife Technician The patient has been accepted under the care of the hospitalist Dr. Diop - Departure Departure Disposition: Transfer Clinical Impression: Hyperkalemia, ESRD needing dialysis, Weakness, Metabolic acidosis Clinical Impression: (Ruled Out): Hyperkalemia with normal acid-base balance Condition: Stable Critical Care Time: Yes Critical Care Time(excluding separately billable procedures): Critical 105-134 mins Referrals: RENEE DA SILVA MD [Primary Care Provider] - Follow up/PCP as directed
[2023-04-01 22:37] LABS: Absolute Neutrophil Ct (ANC) 10.45 x10^3/uL (1.4-6.9); BASOPHIL % 0.8 % (0.0-0.4); Basophil (Absolute #) 0.12 x10^3/uL (0-0.4); Eosinophil % 4.5 % (0.00-5.0); Eosinophil (Absolute #) 0.66 x10^3/uL (0-0.5); Hematocrit 28.5 % (42-50); Hemoglobin 8.8 g/dL (12.5-18.0); IMMATURE GRAN # 0.08 x10^3u/L (0.00-0.03); IMMATURE GRAN % 0.5 % (0.00-0.4); Lymphocyte (Absolute #) 2.09 x10^3/uL (1.0-4.6); Lymphocytes % 14.2 % (24.0-44.0); Mean Cell Volume 88.5 fL (78-100); Mean Corpuscular Hemoglobin 27.3 pg (26-32); Mean Corpuscular Hgb Concent. 30.9 g/dL (32-36); Mean Platelet Volume 9.3 fL (7.5-11.0); Monocyte (Absolute #) 1.29 x10^3/uL (0.0-1.3); Monocytes % 8.8 % (0.0-12.0); Neutrophil % 71.2 % (36.0-66.0); Platelet Count 495 x10^3/uL (150-450); Red Blood Count 3.22 x10^6/uL (4.1-5.6); Red Cell Distribution Width 14.7 % (11.5-14.0); White Blood Count 14.7 x10^3/uL (4.0-10.5)
[2023-04-01 22:50] LABS: ALBUMIN 4.1 g/dL (3.5-5.0); ANION GAP 23.9 MEQ/L (5-15); BILIRUBIN,TOTAL 0.2 mg/dL (0.2-1.3); Calcium 8.6 mg/dL (8.4-10.2); Creatinine 1 7.31 mg/dL (0.66-1.25); EST GLOMERULAR FILTRATION RATE 8.8 ML/MIN; MAGNESIUM 1.5 mg/dL (1.6-2.3); Total Protein 8.8 g/dL (6.3-8.2)
[2023-04-01 22:59] LABS: Potassium 7.1 mmol/L (3.5-5.1)
[2023-04-01] MEDS ORDERED: Calcium Gluconate 10% 1000 MG IV ONE ×2 (23:07→23:28)
[2023-04-01] MEDS ORDERED: Sodium Bicarbonate 50 MEQ/50 ML VIAL IV STA (23:08)
[2023-04-01] MEDS ORDERED: D50W 50 ml Abboject IV ONE ×3 (23:09→23:45)
[2023-04-01] MEDS ORDERED: HUMULIN R IV ONE (23:10)
[2023-04-01] MEDS ORDERED: Sodium Bicarbonate 50 MEQ/50 ML VIAL ONE (23:29)
[2023-04-01] MEDS ORDERED: HUMULIN R ONE (23:29)
[2023-04-02 01:23] LABS: ANION GAP 19.8 MEQ/L (5-15); Calcium 8.8 mg/dL (8.4-10.2); Creatinine 1 7.11 mg/dL (0.66-1.25)
[2023-04-02 01:31] LABS: Potassium 7.1 mmol/L (3.5-5.1)
[2023-04-02] MEDS ORDERED: Kayexylate 15 GM/60 ML PO ONE (01:32)
[2023-04-02] MEDS ORDERED: D50W 50 ml Abboject IV ONE (01:33)
[2023-04-02] MEDS ORDERED: HUMULIN R IV ONE (01:33)
[2023-04-02] MEDS ORDERED: Sodium Bicarbonate 50 MEQ/50 ML VIAL IV STA (01:34)
[2023-04-02] MEDS ORDERED: PROVENTIL 2.5 MG/3 ML NEB IH ONE ×3 (01:36→01:50)
[2023-04-02] MEDS ORDERED: Kayexylate 15 GM/60 ML ONE (01:49)
[2023-04-02] MEDS ORDERED: Sodium Bicarbonate 50 MEQ/50 ML VIAL ONE (01:49)
[2023-04-02] MEDS ORDERED: HUMULIN R ONE (01:51)
[2023-04-02 02:04] VITALS: O2SAT 99
[2023-04-02 02:07] VITALS: BP 129/70; PULSE 79; RESP 31
== END 2023-04-02 03:06 | disposition short-term general hospital (02) ==
LOC: ED 21:48
DX: R53.1 Weakness (principal); E87.5 Hyperkalemia; E87.20 Acidosis, unspecified; I12.0 Hypertensive chronic kidney disease with stage 5 chronic kidney disease or end stage renal disease; E11.22 Type 2 diabetes mellitus with diabetic chronic kidney disease; N18.6 End stage renal disease; M54.50 Low back pain, unspecified; E11.319 Type 2 diabetes mellitus with unspecified diabetic retinopathy without macular edema; Z79.84 Long term (current) use of oral hypoglycemic drugs; Z79.899 Other long term (current) drug therapy; Z99.2 Dependence on renal dialysis
CPT/HCPCS: 36000; 36415; 80048; 80053; 82947; 83735; 85025; 93005; 94640; 96374; 96375; 96376; 99285; 99291; 99292; J0612; J1815; J7609; A9270-GY

== ENCOUNTER 2023-12-09 18:40 | Emergency (ER) | payer MEDICARE ==
[2023-12-09 18:55] VITALS: TEMP 98.2
--- NOTE | 2023-12-09 19:09 | ERPHSYRPT ---
- History of Present Illness Time Seen by Provider: 12/09/23 18:55 Source: patient Exam Limitations: no limitations Patient Subjective Stated Complaint: pt brought to ED by son after right surgical wound started bleeding at home. Triage Nursing Assessment: Pt brought to ED by son after right foot started to bleed.Pt has undergone debridement on 12/07/2023 on bilat feet. Right foot bandaged were saturated in blood. Pt stated he wrapped it in coban prior to coming to try to stop the bleeding. Pt was brought in by wheelchair. hypertensive, skin is w/n/d, pulses normal, pt doesn't appear to be in any distress. Physician History: Pt states his right foot wound was cleaned out in surgery at [facility] in [place], [place], by Dr. Crouch([employer]) 2 days ago and tonight his right foot wound started bleeding. Pt only wants his right foot wound redressed; refused labs and U/A. Pt denies chest pain, shortness of air, fever, abdominal pain, nausea, vomiting. Pt has been diabetic many years. Allergies/Adverse Reactions: No Known Drug Allergies Allergy (Verified 12/09/23 18:55) Home Medications: Aspirin 81 gm Chew [Baby Aspirin 81 mg Chew] 324 mg PO DAILY 01/09/23 [History] Clonidine HCl 0.1 mg [Clonidine 0.1 mg Tablet] 0.3 mg PO BID 01/09/23 [History] Dapagliflozin Propanediol [Farxiga] 10 mg PO DAILY 01/09/23 [History] lisinopriL [Lisinopril] 40 mg PO DAILY 01/09/23 [History] Ciprofloxacin [Cipro 500 MG] 250 mg PO BID 04/01/23 [History] Insulin Glargine [Lantus Insulin] 40 units IN BID 12/09/23 [History] Hx Tetanus, Diphtheria Vaccination/Date Given: Yes Hx Influenza Vaccination/Date Given: No Hx Pneumococcal Vaccination/Date Given: No Travel Risk - International Travel Have you traveled outside of the country in past 3 weeks: No - Emerging Infectious Disease Are you exhibiting symptoms associated with any current EIDs: No - Review of Systems Constitutional: No Fever Respiratory: No Dyspnea Cardiac: No Chest Pain Abdominal/Gastrointestinal: No Abdominal Pain, No Nausea, No Vomiting Skin: Other (ulcers on both feet) - Past Medical History Pertinent Past Medical History: Yes Neurological History: No Pertinent History ENT History: Other Cardiac History: High Cholesterol, Hypertension Respiratory History: No Pertinent History Endocrine Medical History: Diabetes Type II GI Medical History: No Pertinent History History: Renal Disease Psycho-Social History: No Pertinent History Other Medical History: blind, stage 5 disease kidney - Past Surgical History Past Surgical History: Yes Neuro Surgical History: No Pertinent History Cardiac: No Pertinent History Respiratory: No Pertinent History Gastrointestinal: No Pertinent History Genitourinary: No Pertinent History Musculoskeletal: Amputation, Orthopedic Surgery, Other Male Surgical History: No Pertinent History Other Surgical History: 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 surgery to wounds of bilat feet due to diabetes - Social History Smoking Status: Former smoker Exposure to second hand smoke: Yes Drug Use: none Patient Lives Alone: No - Social Determinants of Health Will the patient participate in the screening: Yes Do you worry about a steady place to live?: No Do you have any problems with any of the following?: No known problems In the past 12 months,have you had to go without utilities?: No Transportation Issues: No Has anyone in your support network made you feel unsafe?: No Have you or anyone in your house had to go without enough: No - Nursing Vital Signs Nursing Vital Signs: Initial Vital Signs Temperature 98.2 F 12/09/23 18:44 Pulse Rate 83 12/09/23 18:44 Blood Pressure 166/104 12/09/23 18:44 O2 Sat by Pulse Oximetry 100 12/09/23 18:44 Pain Scale Pain Intensity 0 - Physical Exam General Appearance: alert Eyes, Ears, Nose, Throat Exam: pharynx normal Neck Exam: normal inspection Cardiovascular/Respiratory Exam: normal breath sounds, heart sounds normal Foot Exam: right foot: other (healing ulcer on plantar surface of left forefoot ) Mental Status Exam: alert, cooperative Skin Exam: other (large debrided ulcer of right heel with no active bleeding currently) SpO2 Interpretation: normal SpO2: 100 O2 Delivery: Room Air - Course Nursing assessment & vital signs reviewed: Yes - Progress Progress: unchanged - Departure Departure Disposition: Home Clinical Impression: Skin ulcers of both feet Condition: Stable Critical Care Time: No Referrals: RENEE DA SILVA MD [Primary Care Provider] - Follow up/PCP as directed Instructions: Pressure sores, Wound Care (DC) Additional Instructions: Follow up with Dr. Crouch tomorrow. Elevate right foot for the next 24 hours.
[2023-12-09 19:50] VITALS: BP 148/83; PULSE 74; RESP 18; O2SAT 99
== END 2023-12-09 19:45 | disposition home or self-care (01) ==
LOC: ED 18:40
DX: L97.529 Non-pressure chronic ulcer of other part of left foot with unspecified severity (principal); L97.419 Non-pressure chronic ulcer of right heel and midfoot with unspecified severity; E78.5 Hyperlipidemia, unspecified; I12.0 Hypertensive chronic kidney disease with stage 5 chronic kidney disease or end stage renal disease; E11.22 Type 2 diabetes mellitus with diabetic chronic kidney disease; N18.5 Chronic kidney disease, stage 5; Z79.84 Long term (current) use of oral hypoglycemic drugs; Z79.4 Long term (current) use of insulin; Z79.899 Other long term (current) drug therapy
CPT/HCPCS: 99281

== ENCOUNTER 2023-12-19 15:52 | Emergency (ER) | payer MEDICARE ==
[2023-12-19 16:11] VITALS: TEMP 98.7; O2SAT 99
--- NOTE | 2023-12-19 16:42 | ERPHSYRPT ---
- History of Present Illness Time Seen by Provider: 12/19/23 16:20 Source: patient Exam Limitations: no limitations Patient Subjective Stated Complaint: C/O near syncope episode while at the hemodialysis center today. Patient was in the chair when this occurred. Triage Nursing Assessment: Arrived by ambulance. He is alert and oriented. Dressings/wraps present to bilateral feet/heels that are solied with bloody drainage. Odor noted from patient. Pitting edema is present to patient's right foot where dressing is not covering near his toes. Dressings not removed at this time. Permacath present to right chest. Skin tone normal. No SOB. No cough. Physician History: About 1 hour ago pt was receiving dialysis and had only 20 minutes left on his 4 hour dialysis when he lost consciousness for about 2 minutes; also c/o a mild intermittent frontal headache for the past 90 minutes. Pt also stated his BP was elevated at dialysis. Pt denies chest pain, shortness of air, fever, abdominal pain, nausea, vomiting. Allergies/Adverse Reactions: No Known Drug Allergies Allergy (Verified 12/19/23 15:58) Home Medications: Cephalexin Mh 500 mg [Keflex 500 mg] 500 mg PO TID 12/19/23 [History] Ciprofloxacin HCl [Cipro] 250 mg PO BID 12/19/23 [History] Clonidine HCl 0.1 mg [Clonidine 0.1 mg Tablet] 0.3 mg PO BID 12/19/23 [History] Dapagliflozin Propanediol [Farxiga] 5 mg PO DAILY 12/19/23 [History] Dulaglutide [Trulicity] 4.5 mg SQ WEEKLY 12/19/23 [History] Insulin Glargine [Lantus Insulin] 40 unit SQ BID 12/19/23 [History] lisinopriL [Zestril] 40 mg PO DAILY 12/19/23 [History] Hx Tetanus, Diphtheria Vaccination/Date Given: Yes Hx Influenza Vaccination/Date Given: No Hx Pneumococcal Vaccination/Date Given: No Immunizations Up to Date: Yes Travel Risk - International Travel Have you traveled outside of the country in past 3 weeks: No - Emerging Infectious Disease Are you exhibiting symptoms associated with any current EIDs: Yes Symptoms: Headaches/Body Aches/ - Past Medical History Pertinent Past Medical History: Yes Neurological History: No Pertinent History ENT History: Other Cardiac History: High Cholesterol, Hypertension Respiratory History: No Pertinent History Endocrine Medical History: Diabetes Type II GI Medical History: No Pertinent History History: Renal Disease Psycho-Social History: No Pertinent History Other Medical History: blind, stage 5 disease kidney (hemodialyis patient that currently utilizes [facility] in [place], [place]). 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 surgery to wounds of bilat feet due to diabetes, permacath for dialysis to right chest - Social History Smoking Status: Never smoker Exposure to second hand smoke: Yes Drug Use: none Patient Lives Alone: No - Social Determinants of Health Will the patient participate in the screening: Declined to provide - Review of Systems Constitutional: No Fever Respiratory: No Dyspnea Cardiac: No Chest Pain Abdominal/Gastrointestinal: No Abdominal Pain, No Nausea, No Vomiting, No Diarrhea Neurological: Headache, Other (syncope) Physical Exam - Nursing Vital Signs Nursing Vital Signs: Initial Vital Signs Temperature 98.7 F 12/19/23 15:53 Pulse Rate 82 12/19/23 15:53 Respiratory Rate 19 12/19/23 15:53 Blood Pressure 125/80 12/19/23 15:53 O2 Sat by Pulse Oximetry 99 12/19/23 15:53 Pain Scale Pain Intensity 7 - [place] Coma Scale Best Eye Response (Ramierz): (4) open spontaneously Best Verbal Response ([place]): (5) oriented Best Motor Response (Ramirez): (6) obeys commands Ramirez Total: 15 - Physical Exam General Appearance: alert Eye Exam: bilateral eye: other (Pt states he has diabetic retinopathy and can only see shapes.) Ears, Nose, Throat Exam: moist mucous membranes Neck Exam: normal inspection Respiratory: lungs clear Cardiovascular: normal heart sounds Gastrointestinal: normal bowel sounds Extremity Exam: other (large post debridement deformity of right heel; ulcer of left forefoot.) 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, 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 Exam: normal hearing, normal speech Skin Exam: No cyanosis SpO2 Interpretation: normal SpO2: 99 O2 Delivery: Room Air - Course Nursing assessment & vital signs reviewed: Yes EKG Interpreted by Me: RATE (95), Sinus Rhythm, NORMAL AXIS, Other (QTc = 481) - Radiology Exams Chest X-ray Interpretation: Interpreted by me, No Pneumonia Ordered Tests: Active Orders 24 hr Category Date Time Status EKG-ER Only STAT Care 12/19/23 16:47 Active CHEST 1 VIEW (PORTABLE) Stat Exams 12/19/23 16:45 Taken POCT GLUCOSE Stat Lab 12/19/23 17:02 Completed Urine Triage Profile Stat Lab 12/19/23 16:48 Ordered Medication Summary Discontinued Medications Generic Name Dose Route Start Last Admin Trade Name Freq PRN Reason Stop Dose Admin Sodium Chloride 1,000 mls @ 999 mls/hr 12/19/23 16:45 12/19/23 17:13 Sodium Chloride 0.9% 1000 Ml IV 12/19/23 17:45 Not Given .Q1H1M STA Lab/Rad Data: Laboratory Results 12/19/23 Range/Units 17:02 POC Glucometer 160 H (74 to 106) mg/dL - Progress Progress: improved Progress Note: 12/19/23 17:[address]-head, IV, labs but will have cxr and ekg and accucheck. 12/19/23 17:04 Accucheck = 160. Counseled pt/family regarding: diagnosis, need for follow-up, rad results Medical Desision Making - Diagnostic Testing Diagnostic test were ordered, analyzed, and reviewed by me: Yes Radiological Interpretation: Interpreted by me - Departure Departure Disposition: Home Clinical Impression: Syncope, Skin ulcers of both feet, ESRD (end stage renal disease) Condition: Stable Critical Care Time: No Referrals: RENEE DA SILVA MD [Primary Care Provider] - Follow up/PCP as directed Instructions: Syncope (Fainting) (DC) Additional Instructions: Follow up with wound care and skate boarder tomorrow.
[2023-12-19] MEDS: Sodium Chloride 0.9% 1000 ML 1,000 ML IV STA (17:13)
[2023-12-19 18:23] VITALS: BP 118/67; PULSE 78; RESP 17
--- NOTE | 2023-12-20 08:46 | XRAY ---
Indication: Syncope. Comparison: January 09, 2023 Portable chest demonstrates grossly stable CT proven left midlung noncalcified nodule. New right double lumen dialysis catheter with tip in right atrium. Remaining heart, lungs, and bony thorax unremarkable.
== END 2023-12-19 18:23 | disposition home or self-care (01) ==
LOC: ED 15:52
DX: R55 Syncope and collapse (principal); E11.621 Type 2 diabetes mellitus with foot ulcer; L97.529 Non-pressure chronic ulcer of other part of left foot with unspecified severity; L97.519 Non-pressure chronic ulcer of other part of right foot with unspecified severity; I12.0 Hypertensive chronic kidney disease with stage 5 chronic kidney disease or end stage renal disease; E11.22 Type 2 diabetes mellitus with diabetic chronic kidney disease; N18.6 End stage renal disease; R51.9 Headache, unspecified; E78.5 Hyperlipidemia, unspecified; Z79.84 Long term (current) use of oral hypoglycemic drugs; Z79.85 Long-term (current) use of injectable non-insulin antidiabetic drugs; Z79.4 Long term (current) use of insulin; Z79.899 Other long term (current) drug therapy; Z99.2 Dependence on renal dialysis
CPT/HCPCS: 71045; 82947; 93005; 99283

== ENCOUNTER 2024-04-12 23:44 | Emergency (ER) | payer MEDICARE ==
--- NOTE | 2024-04-12 23:53 | ERPHSYRPT ---
- History of Present Illness Time Seen by Provider: 04/12/24 23:52 Source: patient, family Exam Limitations: no limitations Physician History: Pt had onset of bleeding from his debrided right foot - soaking his dressing after accidentally walking on some gravel surface. No fall or direct trauma. Discussed with pt risks and benefits of testing/Tx including CBC,( due to blood loss) , CT or x-ray , pain med, Antibiotic and they wish to just have the dressing change tonight and no further testing such as CBC or Coags or imaging, and will see RN tomorrow for another change - he has the capacity to make this choice to forgo additional evaluation and Tx. The wound ( Heel) appears to have stopped bleeding and we will dress with adaptic to prevent anais sticking to wound and then apply anais compression to maintain hemostasis. No visible FB on exam ( dressing was intact) nontender, N/V intact distally. tet reported as UTD. comorbidities are renal dialysis and DM. But pt reports no symptoms from these conditions and as stable and declines further w/u for these and has the capacity to make this choice. Timing/Duration: today Severity: moderate Location: feet (right heel) Possible Causes: other (waling on gravel) Associated Symptoms: denies symptoms Allergies/Adverse Reactions: No Known Drug Allergies Allergy (Verified 04/12/24 23:51) Home Medications: Ciprofloxacin HCl [Cipro] 250 mg PO BID 12/19/23 [History] Clonidine HCl 0.1 mg [Clonidine 0.1 mg Tablet] 0.3 mg PO BID 12/19/23 [History] Dapagliflozin Propanediol [Farxiga] 5 mg PO DAILY 12/19/23 [History] Dulaglutide [Trulicity] 4.5 mg SQ WEEKLY 12/19/23 [History] Insulin Glargine [Lantus Insulin] 40 unit SQ BID 12/19/23 [History] lisinopriL [Zestril] 40 mg PO DAILY 12/19/23 [History] Hx Tetanus, Diphtheria Vaccination/Date Given: Yes Hx Influenza Vaccination/Date Given: No Hx Pneumococcal Vaccination/Date Given: No Travel Risk - Emerging Infectious Disease Are you exhibiting symptoms associated with any current EIDs: Yes Symptoms: Headaches/Body Aches/ - Review of Systems Constitutional: No Fever, No Chills Eyes: No Symptoms Ears, Nose, & Throat: No Symptoms Respiratory: No Cough, No Dyspnea Cardiac: No Chest Pain, No Edema, No Syncope Abdominal/Gastrointestinal: No Abdominal Pain, No Nausea, No Vomiting, No Diarrhea Genitourinary Symptoms: No Dysuria Musculoskeletal: No Back Pain, No Neck Pain Skin: Other (debrided wound with clot in place. ), No Rash Neurological: No Dizziness, No Focal Weakness, No Sensory Changes Psychological: No Symptoms Endocrine: No Symptoms Hematologic/Lymphatic: No Symptoms Immunological/Allergic: No Symptoms All Other Systems: Reviewed and Negative - Past Medical History Pertinent Past Medical History: Yes Neurological History: No Pertinent History ENT History: Other Cardiac History: High Cholesterol, Hypertension Respiratory History: No Pertinent History Endocrine Medical History: Diabetes Type II GI Medical History: No Pertinent History History: Renal Disease Psycho-Social History: No Pertinent History Other Medical History: blind, stage 5 disease kidney (hemodialyis patient that currently utilizes [facility] [facility] in [place], [place]). 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 surgery to wounds of bilat feet due to diabetes, permacath for dialysis to right chest - Social History Smoking Status: Never smoker Exposure to second hand smoke: Yes Drug Use: none Patient Lives Alone: No - Social Determinants of Health Will the patient participate in the screening: Declined to provide - Physical Exam General Appearance: no apparent distress, alert Eye Exam: PERRL/EOMI, eyes nml inspection Ears, Nose, Throat Exam: normal ENT inspection, pharynx normal, moist mucous membranes Neck Exam: normal inspection, non-tender, supple, full range of motion Respiratory Exam: normal breath sounds, lungs clear, No respiratory distress Cardiovascular Exam: regular rate/rhythm, normal heart sounds Gastrointestinal/Abdomen Exam: soft, mass, No tenderness Back Exam: normal inspection, normal range of motion, No CVA tenderness, No vertebral tenderness Extremity Exam: normal inspection, normal range of motion Neurologic Exam: alert, oriented x 3, cooperative, normal mood/affect, sensation nml, No motor deficits Skin Exam: normal color, warm, dry, other (debrided wound with clot in place) SpO2 Interpretation: normal SpO2: 100 O2 Delivery: Room Air - Course Nursing assessment & vital signs reviewed: Yes - Progress Progress: improved, re-examined Progress Note: 04/13/24 00:18 hemostasis had spontaneously occurred and wound was redressed in ER. Counseled pt/family regarding: diagnosis, need for follow-up Medical Desision Making - Discussion of managment Reviewed:: Test results, Need for additional workup Agreed on:: Treatment plan, need for follow-up - Diagnostic Testing Diagnostic test were ordered, analyzed, and reviewed by me: No - Risk of complications The pt has a mod risk of morbidity or mortality based on: Need for prescription drug management - Departure Departure Disposition: Home Clinical Impression: resolved bleeding from debrided wound Condition: Good Critical Care Time: No Referrals: RENEE DA SILVA MD [Primary Care Provider] - Follow up/PCP as directed Instructions: Wound Care (DC) Additional Instructions: Have your wound rechecked and redressed tomorrow as planned. Return meantime if bleeding, dizziness, or any other symptoms of concern.
[2024-04-13 00:10] VITALS: RESP 22; TEMP 98.2; O2SAT 100
[2024-04-13 00:11] VITALS: BP 167/105; PULSE 98
== END 2024-04-13 00:24 | disposition home or self-care (01) ==
LOC: ED 23:44
DX: Z48.00 Encounter for change or removal of nonsurgical wound dressing (principal)
CPT/HCPCS: 99282

== ENCOUNTER 2024-04-29 10:21 | Emergency (ER) | payer MEDICARE ==
[2024-04-29 11:42] VITALS: TEMP 98.2
--- NOTE | 2024-04-29 12:15 | ERPHSYRPT ---
- History of Present Illness Time Seen by Provider: 04/29/24 12:10 Source: patient Exam Limitations: no limitations Patient Subjective Stated Complaint: C/O vomiting X 3 days. Patient is a hemodiaysis patient and missed dialysis yesterday. Dr. Alejandro is his department of natural resources officer. Triage Nursing Assessment: Patient arrived by ambulance. He is alert and jannet ented. No active vomiting since his arrival. Permacath noted to chest. NO SOB. No cough. Dressings present to [facility]; indicates he is treated by wound staff in [facility]. Physician History: 44-year-old male diabetic, diabetic nephropathy on hemodialysis Sunday missed his Sunday session presents to our ED for evaluation of of nausea vomiting diarrhea and abdominal pain for 3 days. Patient's department of natural resources officer is . Patient produces urine. No trauma no fever. Patient's symptoms are constant. Symptoms are moderate in intensity. No specific worsening or improving factors. Patient otherwise feels well. He voices no other complaints or concerns at this time. Portions of this note were created with voice recognition technology. There may be grammatical, spelling, punctuation or sound alike errors Timing/Duration: day(s) (3 days) Severity: moderate Modifying Factors: Improves With: nothing Associated Symptoms: denies symptoms Allergies/Adverse Reactions: No Known Drug Allergies Allergy (Verified 04/29/24 11:22) Home Medications: Clonidine HCl 0.1 mg [Clonidine 0.1 mg Tablet] 0.3 mg PO BID 12/19/23 [History] Dapagliflozin Propanediol [Farxiga] 5 mg PO DAILY 12/19/23 [History] Dulaglutide [Trulicity] 4.5 mg SQ WEEKLY 12/19/23 [History] Insulin Glargine [Lantus Insulin] 40 unit SQ BID 12/19/23 [History] lisinopriL [Zestril] 40 mg PO DAILY 12/19/23 [History] Hx Tetanus, Diphtheria Vaccination/Date Given: Yes Hx Influenza Vaccination/Date Given: No Hx Pneumococcal Vaccination/Date Given: No Immunizations Up to Date: Yes Travel Risk - International Travel Have you traveled outside of the country in past 3 weeks: No - Emerging Infectious Disease Are you exhibiting symptoms associated with any current EIDs: Yes Symptoms: Vomitting - Review of Systems Constitutional: No Symptoms, No Fever, No Chills Eyes: No Symptoms Ears, Nose, & Throat: No Symptoms Respiratory: No Symptoms, No Cough, No Dyspnea Cardiac: No Symptoms, No Chest Pain, No Edema, No Syncope Abdominal/Gastrointestinal: No Symptoms, No Abdominal Pain, No Nausea, No Vomiting, No Diarrhea Genitourinary Symptoms: No Symptoms, No Dysuria Musculoskeletal: No Symptoms, No Back Pain, No Neck Pain Skin: No Symptoms, No Rash Neurological: No Symptoms, No Dizziness, No Focal Weakness, No Sensory Changes Psychological: No Symptoms Endocrine: No Symptoms Hematologic/Lymphatic: No Symptoms Immunological/Allergic: No Symptoms All Other Systems: Reviewed and Negative - Past Medical History Pertinent Past Medical History: Yes Neurological History: No Pertinent History ENT History: Other Cardiac History: High Cholesterol, Hypertension Respiratory History: No Pertinent History Endocrine Medical History: Diabetes Type II GI Medical History: No Pertinent History History: Renal Disease Psycho-Social History: No Pertinent History Other Medical History: blind, stage 5 disease kidney (hemodialyis patient that currently utilizes [facility] in [place], [place]). Patient indicates all of his specialists and pantry chef are from the [facility]. 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 surgery to wounds of bilat feet due to diabetes, permacath for dialysis to chest - Social History Smoking Status: Never smoker Exposure to second hand smoke: No Drug Use: none Patient Lives Alone: No - Social Determinants of Health Will the patient participate in the screening: Declined to provide - Nursing Vital Signs Nursing Vital Signs: Initial Vital Signs Temperature 98.2 F 04/29/24 11:25 Pulse Rate 121 H 04/29/24 11:25 Respiratory Rate 18 04/29/24 11:25 Blood Pressure 143/72 04/29/24 11:25 O2 Sat by Pulse Oximetry 100 04/29/24 11:25 Pain Scale Pain Intensity 0 - Physical Exam General Appearance: no apparent distress, alert Eye Exam: PERRL/EOMI, eyes nml inspection Ears, Nose, Throat Exam: normal ENT inspection, TMs normal, pharynx normal, moist mucous membranes Neck Exam: normal inspection, non-tender, supple, full range of motion Respiratory Exam: normal breath sounds, lungs clear, No respiratory distress Cardiovascular Exam: regular rate/rhythm, normal heart sounds, normal peripheral pulses Gastrointestinal/Abdomen Exam: soft, normal bowel sounds, No tenderness, No mass Back Exam: normal inspection, normal range of motion, No CVA tenderness, No vertebral tenderness Extremity Exam: normal inspection, normal range of motion, pelvis stable Neurologic Exam: alert, oriented x 3, cooperative, normal mood/affect, sensation nml, No motor deficits Skin Exam: normal color, warm, dry, No rash Lymphatic Exam: No adenopathy SpO2 Interpretation: normal SpO2: 100 O2 Delivery: Room Air - Course Nursing assessment & vital signs reviewed: Yes EKG Interpreted by Me: RATE (120), Sinus Tach, NORMAL AXIS, NORMAL INTERVALS, NORMAL QRS - CT Exams Abdomen/Pelvis CT Interpretation: Tele-radiologist Report (Hepatomegaly. Small pericardial effusion) Ordered Tests: Active Orders 24 hr Category Date Time Status Emissions Testing And Repair Technician STAT Care 04/29/24 12:17 Active EKG-ER Only STAT Care 04/29/24 12:16 Active IV Insertion STAT Care 04/29/24 12:16 Active Pulse Oximetry (ED) STAT Care 04/29/24 12:16 Active ABDOMEN AND PELVIS W/0 CONTRAS [CT] Stat Exams 04/29/24 12:17 Completed CBC W DIFF Stat Lab 04/29/24 12:20 Completed CMP Stat Lab 04/29/24 12:20 Completed CULTURE,URINE Stat Lab 04/29/24 12:37 Received Manual Differential NC Stat Lab 04/29/24 12:20 Completed NT PRO BNPII Stat Lab 04/29/24 12:20 Completed TROPONIN Q4H Lab 04/29/24 12:20 Completed TROPONIN Q4H Lab 04/29/24 16:14 Completed TROPONIN Q4H Lab 04/29/24 20:30 Ordered UA W/RFX UR CULTURE Stat Lab 04/29/24 12:37 Completed Medication Summary Discontinued Medications Generic Name Dose Route Start Last Admin Trade Name Freq PRN Reason Stop Dose Admin Vancomycin HCl 1 gm in 200 mls @ 125 mls/hr 04/29/24 14:13 04/29/24 16:19 Vancomycin 1 Gram/200 Ml Bag IV 04/29/24 15:48 Infused STAT ONE Infusion Gentamicin Sulfate/Sodium Chloride 160 mg in 100 mls @ 200 mls/hr 04/29/24 14:14 04/29/24 17:06 Gentamicin 80 Mg/50 Ml Premix IV 04/29/24 14:43 Infused STAT ONE Infusion Vancomycin HCl Confirm 04/29/24 14:21 Vancomycin 1 Gram/200 Ml Bag Administered 04/29/24 14:22 Dose 1 gm in 200 mls @ ud IV .STK-MED ONE Gentamicin Sulfate/Sodium Chloride Confirm 04/29/24 16:31 Gentamicin 80 Mg/50 Ml Premix Administered 04/29/24 16:32 Dose 100 mls @ ud IV .STK-MED ONE Lab/Rad Data: Laboratory Result Diagrams 04/29/24 12:20 04/29/24 12:20 Laboratory Results 04/29/24 04/29/24 04/29/24 Range/Units 16:14 15:10 12:37 WBC (4.23-9.07) x10^3/uL RBC (4.63-6.08) x10^6/uL Hgb (13.7-17.5) g/dL Hct (40.1-51.0) % MCV (79.0-92.2) fL MCH (25.7-32.2) pg MCHC (32.3-36.5) g/dL RDW (11.6-14.4) % Plt Count (163-337) x10^3/uL MPV (9.4-12.4) fL Segmented Neutrophils (34.0-67.9) % Band Neutrophils (0.0-2.0) % Lymphocytes (Manual) (21.8-53.1) % Monocytes (Manual) (5.3-12.2) % Atypical Lymphocytes % Platelet Estimate (NORMAL) RBC Morphology Sodium (135-145) mmol/L Potassium (3.5-5.1) mmol/L Chloride (98-107) mmol/L Carbon Dioxide (22-30) mmol/L Anion Gap (5-15) MEQ/L BUN (9-20) mg/dL Creatinine (0.66-1.25) mg/dL Estimated GFR ML/MIN Glucose (74-106) mg/dL Calcium (8.4-10.2) mg/dL Total Bilirubin (0.2-1.3) mg/dL AST (17-59) U/L ALT (0-50) U/L Alkaline Phosphatase (38-126) U/L Troponin I 0.074 H* (0.000-0.033) ng/mL NT-Pro-B Natriuret Pep (<300) pg/mL Serum Total Protein (6.3-8.2) g/dL Albumin (3.5-5.0) g/dL Urine Color Yellow (Yellow) Urine Appearance Clear (Clear) Urine pH 6.0 (4.6-8.0) Ur Specific [place] 1.020 (1.005-1.030) Urine Protein >=1000 A (Negative) Urine Glucose (UA) 500 A (Negative) mg/dL Urine Ketones Trace A (Negative) Urine Blood Large A (Negative) Urine Nitrite Negative (Negative) Urine Bilirubin Negative (Negative) Urine Urobilinogen 0.2 (0.2) mg/dL Ur Leukocyte Esterase Negative (Negative) U Hyaline Cast (Auto) None Seen (0-2) /LPF Urine Microscopic RBC 21-50 A (0-5) /HPF Urine Microscopic WBC 11-20 A (0-5) /HPF Ur Epithelial Cells Few (None Seen) /HPF Urine Bacteria Moderate A (None Seen) /HPF Urine Culture Reflexed YES (NO) Influenza Type A Ag NEGATIVE (NEGATIVE) Influenza Type B Ag NEGATIVE (NEGATIVE) RSV (PCR) NEGATIVE (NEGATIVE) SARS-CoV-2 (PCR) NEGATIVE (NEGATIVE) 04/29/24 04/29/24 04/29/24 Range/Units 12:20 12:20 12:20 WBC 22.8 H (4.23-9.07) x10^3/uL RBC 4.21 L (4.63-6.08) x10^6/uL Hgb 11.2 L (13.7-17.5) g/dL Hct 34.5 L (40.1-51.0) % MCV 81.9 (79.0-92.2) fL MCH 26.6 (25.7-32.2) pg MCHC 32.5 (32.3-36.5) g/dL RDW 16.5 H (11.6-14.4) % Plt Count 328 (163-337) x10^3/uL MPV 9.3 L (9.4-12.4) fL Segmented Neutrophils 88 H (34.0-67.9) % Band Neutrophils 3 H (0.0-2.0) % Lymphocytes (Manual) 3 L (21.8-53.1) % Monocytes (Manual) 5 L (5.3-12.2) % Atypical Lymphocytes 1 % Platelet Estimate NORMAL (NORMAL) RBC Morphology NORMAL Sodium 127 L (135-145) mmol/L Potassium 4.7 (3.5-5.1) mmol/L Chloride 94 L (98-107) mmol/L Carbon Dioxide 15 L* (22-30) mmol/L Anion Gap 22.3 H (5-15) MEQ/L BUN 65 H (9-20) mg/dL Creatinine 8.00 H (0.66-1.25) mg/dL Estimated GFR 7.8 ML/MIN Glucose 144 H (74-106) mg/dL Calcium 8.1 L (8.4-10.2) mg/dL Total Bilirubin 1.00 (0.2-1.3) mg/dL AST 59 (17-59) U/L ALT 21 (0-50) U/L Alkaline Phosphatase 97 (38-126) U/L Troponin I 0.075 H* (0.000-0.033) ng/mL NT-Pro-B Natriuret Pep 52992 (<300) pg/mL Serum Total Protein 7.0 (6.3-8.2) g/dL Albumin 3.4 L (3.5-5.0) g/dL Urine Color (Yellow) Urine Appearance (Clear) Urine pH (4.6-8.0) Ur Specific [place] (1.005-1.030) Urine Protein (Negative) Urine Glucose (UA) (Negative) mg/dL Urine Ketones (Negative) Urine Blood (Negative) Urine Nitrite (Negative) Urine Bilirubin (Negative) Urine Urobilinogen (0.2) mg/dL Ur Leukocyte Esterase (Negative) U Hyaline Cast (Auto) (0-2) /LPF Urine Microscopic RBC (0-5) /HPF Urine Microscopic WBC (0-5) /HPF Ur Epithelial Cells (None Seen) /HPF Urine Bacteria (None Seen) /HPF Urine Culture Reflexed (NO) Influenza Type A Ag (NEGATIVE) Influenza Type B Ag (NEGATIVE) RSV (PCR) (NEGATIVE) SARS-CoV-2 (PCR) (NEGATIVE) - Progress Progress: improved Progress Note: Spoke to patient's department of natural resources officer who advises transfer to [facility] for dialysis. He also advises a dose of vancomycin and gentamicin for urinary tract infection and leukocytosis. Vancomycin dose is 1 g this is based on patient's creatinine clearance of 21. Gentamicin dose is renally dosed at 160 mg. Patient is a 44-year-old male with diabetic with a history of diabetic nephropathy. Patient missed his Sunday dialysis session. Laboratory workup reveals significant abnormalities including a bicarb of 15. An elevated BUN/creatinine. Patient will need to be transferred for hemodialysis which we do not offer here at our institution. Patient agrees to transfer to [facility] as per his department of natural resources officer recommendations. Portions of this note were created with voice recognition technology. There may be grammatical, spelling, punctuation or sound alike errors Complexity of problem addressed is moderate acute complicated no critical care time. Complex of data reviewed and analyzed is extensive. Test ordered chest reviewed results analyzed and correlated clinically with history and physical exam. Risk of complication and or risk of morbidity/mortality of patient management is high. Patient requires transfer to higher level of care. Vital stable. Time spent to transfer patient is approximately 20 minutes. Plan of care established for shared decision making. No social determinants of health present to impede follow-up. Portions of this note were created with voice recognition technology. There may be grammatical, spelling, punctuation or sound alike errors 04/29/24 14:15 Addi who accepts transfer at 3 PM. 04/29/24 15:00 Currently the change of shift. Patient accepted at [facility]. Bed assignment provided. We have arranged for transfer care to sheepskin pickler our patient in transfer to [facility]. Pickup time is scheduled for 8:45 PM. Patient observed. He has been resting comfortably. Vital stable. Patient has no complaints. It is currently the change of shift. Patient endorsed to incoming physician Dr. Carrera who will continue to monitor our patient until transfer. Dr. Carrera will oversee the transfer process. 04/29/24 18:[address]Alyssa: Other (Spoke to patient's department of natural resources officer at 2:03 PM. He advises transfer to [facility].) Counseled pt/family regarding: lab results, diagnosis - Departure Departure Disposition: Transfer Clinical Impression: Leukocytosis, Hyponatremia, Metabolic acidosis, Hematuria, Urinary tract infection, Hepatomegaly, Small pericardial effusion, Elevated troponin Condition: Stable Critical Care Time: No Referrals: RENEE DA SILVA MD [Primary Care Provider] - Follow up/PCP as directed
[2024-04-29 13:06] LABS: Hematocrit 34.5 % (40.1-51.0); Hemoglobin 11.2 g/dL (13.7-17.5); Mean Cell Volume 81.9 fL (79.0-92.2); Mean Corpuscular Hemoglobin 26.6 pg (25.7-32.2); Mean Corpuscular Hgb Concent. 32.5 g/dL (32.3-36.5); Mean Platelet Volume 9.3 fL (9.4-12.4); Platelet Count 328 x10^3/uL (163-337); Red Blood Count 4.21 x10^6/uL (4.63-6.08); Red Cell Distribution Width 16.5 % (11.6-14.4); White Blood Count 22.8 x10^3/uL (4.23-9.07)
[2024-04-29 13:33] LABS: Appearance Clear (Clear); Bacteria Moderate /HPF (None Seen); Bilirubin Negative (Negative); Blood Large (Negative); Epithelial Cells Few /HPF (None Seen); Glucose, Urine 500 mg/dL (Negative); Hyaline Casts None Seen /LPF (0-2); Ketones Trace (Negative); Leukocyte Esterase Negative (Negative); Nitrite Negative (Negative); Protein,Urine Dip >=1000 (Negative); RBC 21-50 /HPF (0-5); Urobilinogen 0.2 mg/dL (0.2)
[2024-04-29 13:45] LABS: ALBUMIN 3.4 g/dL (3.5-5.0); ANION GAP 22.3 MEQ/L (5-15); Calcium 8.1 mg/dL (8.4-10.2); EST GLOMERULAR FILTRATION RATE 7.8 ML/MIN; Potassium 4.7 mmol/L (3.5-5.1)
--- NOTE | 2024-04-29 13:54 | XRAY ---
Indication: Abdomen pain, headache, nausea, vomiting, diarrhea. Multiple contiguous axial images obtained through the abdomen and pelvis without contrast. Comparison: January 09, 2023 Lung bases remain clear. Heart not enlarged with new small pericardial effusion/thickening anteriorly. Noncontrasted stomach and bowel loops appear nonobstructed again with normal appendix. No abnormal bowel wall thickening or inflammatory changes on this noncontrast exam. Again 22.2 cm hepatomegaly and tiny hepatic/splenic calcified granulomas. No free fluid/air. Remaining liver, gallbladder, pancreas, spleen, adrenal glands, kidneys, ureters, and bladder are unremarkable for noncontrast exam. There remains mild scattered arterial scattered calcifications without AAA. Osseous structures intact again with mild/moderate multilevel lumbar degenerative spondylosis again greatest at L5-S1. Impression: 1. New small pericardial effusion/thickening. Echocardiogram may yield further evaluation if clinically warranted. 2. Again chronic findings including hepatomegaly, arteriosclerotic disease, multilevel degenerative spondylosis, and old granulomatous disease. 3. Remaining CT abdomen/pelvis without contrast exam is negative.
[2024-04-29] MEDS ORDERED: VANCOMYCIN 1 GRAM/200 ML BAG 1 GM/200 ML PIGGYBACK IV ONE (14:21)
[2024-04-29] MEDS: VANCOMYCIN 1 GRAM/200 ML BAG 1 GM/200 ML PIGGYBACK IV ONE (14:26)
[2024-04-29 14:28] LABS: ATYPICAL LYMPHS 1 %; BAND 3 % (0.0-2.0); Lymphocytes 3 % (21.8-53.1); Monocyte 5 % (5.3-12.2); Neutrophils 88 % (34.0-67.9); Total Cells Counted 100
[2024-04-29 14:29] LABS: Platelet Estimate NORMAL (NORMAL)
[2024-04-29 15:49] LABS: INFLUENZA A NEGATIVE (NEGATIVE); INFLUENZA B NEGATIVE (NEGATIVE); RESPIRATORY SYNCTIAL VIRUS NEGATIVE (NEGATIVE); SARS-CoV-2 Xpert Express NEGATIVE (NEGATIVE)
[2024-04-29] MEDS ORDERED: GENTAMICIN 80 MG/50 ML PREMIX*** 100 ML IV ONE (16:31)
[2024-04-29] MEDS: GENTAMICIN IV ONE (16:34)
[2024-04-29 19:34] VITALS: RESP 14
[2024-04-29 20:14] VITALS: O2SAT 98
[2024-04-29 20:37] VITALS: BP 173/112; PULSE 108
== END 2024-04-29 21:50 | disposition short-term general hospital (02) ==
LOC: ED 10:21
DX: R11.2 Nausea with vomiting, unspecified (principal); N39.0 Urinary tract infection, site not specified; D72.829 Elevated white blood cell count, unspecified; E87.1 Hypo-osmolality and hyponatremia; E87.20 Acidosis, unspecified; R31.9 Hematuria, unspecified; R79.89 Other specified abnormal findings of blood chemistry; I31.39 Other pericardial effusion (noninflammatory); R16.0 Hepatomegaly, not elsewhere classified
CPT/HCPCS: 0241U; 36415; 74176; 80053; 81001; 83880; 84484; 85025; 87086; 93005; 93041; 94760; 96374; 96375; 99285; J1580; J3370

== ENCOUNTER 2024-05-26 09:54 | Emergency (ER) | payer MEDICARE ==
[2024-05-26 10:09] VITALS: TEMP 97.5
[2024-05-26 10:20] LABS: Absolute Neutrophil Ct (ANC) 10.59 x10^3/uL (1.78-5.38); BASOPHIL % 0.7 % (0.2-1.2); Basophil (Absolute #) 0.09 x10^3/uL (0.01-0.08); Eosinophil % 2.9 % (0.8-7.0); Eosinophil (Absolute #) 0.38 x10^3/uL (0.04-0.54); Hematocrit 28.9 % (40.1-51.0); Hemoglobin 8.7 g/dL (13.7-17.5); IMMATURE GRAN # 0.09 x10^3u/L (0.001-0.031); IMMATURE GRAN % 0.7 % (0.001-0.429); Lymphocyte (Absolute #) 1.45 x10^3/uL (1.32-3.57); Mean Cell Volume 86.8 fL (79.0-92.2); Mean Corpuscular Hemoglobin 26.1 pg (25.7-32.2); Mean Corpuscular Hgb Concent. 30.1 g/dL (32.3-36.5); Mean Platelet Volume 8.5 fL (9.4-12.4); Monocyte (Absolute #) 0.55 x10^3/uL (0.30-0.82); Monocytes % 4.2 % (5.3-12.2); Neutrophil % 80.5 % (34.0-67.9); Platelet Count 494 x10^3/uL (163-337); Red Blood Count 3.33 x10^6/uL (4.63-6.08); White Blood Count 13.2 x10^3/uL (4.23-9.07)
--- NOTE | 2024-05-26 10:22 | XRAY ---
Indication: Chest pain. Comparison: December 19, 2023 Portable chest inflated and remains clear. Heart not enlarged again with left double lumen dialysis catheter. Bony thorax intact. No new/acute findings.
[2024-05-26 10:31] LABS: ALBUMIN 3.7 g/dL (3.5-5.0); ANION GAP 12.7 MEQ/L (5-15); BILIRUBIN,TOTAL 0.5 mg/dL (0.2-1.3); Calcium 8.6 mg/dL (8.4-10.2); Creatinine 1 6.67 mg/dL (0.66-1.25); EST GLOMERULAR FILTRATION RATE 9.7 ML/MIN; Potassium 4.6 mmol/L (3.5-5.1); Total Protein 8.5 g/dL (6.3-8.2)
[2024-05-26 11:06] LABS: INFLUENZA A NEGATIVE (NEGATIVE); INFLUENZA B NEGATIVE (NEGATIVE); RESPIRATORY SYNCTIAL VIRUS NEGATIVE (NEGATIVE); SARS-CoV-2 Xpert Express NEGATIVE (NEGATIVE)
--- NOTE | 2024-05-26 12:51 | ERPHSYRPT ---
- History of Present Illness Time Seen by Provider: 05/26/24 10:46 Source: patient Exam Limitations: no limitations Patient Subjective Stated Complaint: C/O chest pain that started approx one hour into his four hour hemodialysis treatment today Triage Nursing Assessment: Patient arrived by ambulance. He is alert and oriented. No SOB. Skin tone normal. Brace noted to right wrist/forearm area. Permacath present to left chest. Fistula grafts noted in RUE. Dressings present to BLE dates 05/25/24; left one is C/D/I and right one with noted drainge to dressing but is intact. Dressings not removed at this time. Timing/Duration: today Severity: mild Allergies/Adverse Reactions: No Known Drug Allergies Allergy (Verified 05/26/24 10:05) Home Medications: Clonidine HCl 0.1 mg [Clonidine 0.1 mg Tablet] 0.3 mg PO BID 12/19/23 [History] Dapagliflozin Propanediol [Farxiga] 5 mg PO DAILY 12/19/23 [History] Dulaglutide [Trulicity] 4.5 mg SQ WEEKLY 12/19/23 [History] Insulin Glargine [Lantus Insulin] 40 unit SQ BID 12/19/23 [History] lisinopriL [Zestril] 40 mg PO DAILY 12/19/23 [History] Hx Tetanus, Diphtheria Vaccination/Date Given: Yes (Engerix-B 01/04/24) Hx Influenza Vaccination/Date Given: No (Patient refusal) Hx Pneumococcal Vaccination/Date Given: No Travel Risk - International Travel Have you traveled outside of the country in past 3 weeks: No - Emerging Infectious Disease Are you exhibiting symptoms associated with any current EIDs: Yes Symptoms: Other (Please Comment) Comment: Draining foot ulcers - Review of Systems Constitutional: No Symptoms Eyes: No Symptoms Ears, Nose, & Throat: No Symptoms Respiratory: No Symptoms Cardiac: Chest Pain Abdominal/Gastrointestinal: No Symptoms Genitourinary Symptoms: No Symptoms Musculoskeletal: No Symptoms Skin: No Symptoms Neurological: No Symptoms - Past Medical History Pertinent Past Medical History: Yes Neurological History: No Pertinent History ENT History: Other Cardiac History: High Cholesterol, Hypertension Respiratory History: No Pertinent History Endocrine Medical History: Diabetes Type II GI Medical History: No Pertinent History History: Renal Disease Psycho-Social History: No Pertinent History Other Medical History: Retinopathy, legally blind, stage 5 disease kidney (hemodialyis patient that currently utilizes [facility] in [place], [place]). Patient indicates all of his specialists and primary clinician are from the [facility] other than his stake setter. Staff Development Coordinator Rn: Dr. Alejandro. 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 - Social History Smoking Status: Never smoker Exposure to second hand smoke: No Drug Use: none Patient Lives Alone: No - Social Determinants of Health Will the patient participate in the screening: Yes Do you worry about a steady place to live?: No Do you have any problems with any of the following?: No known problems In the past 12 months,have you had to go without utilities?: No Transportation Issues: No Has anyone in your support network made you feel unsafe?: No Have you or anyone in your house had to go without enough: No Comment: Currently residing at "[facility]" in [place], [place] - Nursing Vital Signs Nursing Vital Signs: Initial Vital Signs Temperature 97.5 F 05/26/24 09:54 Pain Scale Pain Intensity 0 - Physical Exam General Appearance: no apparent distress Eye Exam: PERRL/EOMI Ears, Nose, Throat Exam: normal ENT inspection Neck Exam: normal inspection Respiratory Exam: normal breath sounds Cardiovascular Exam: regular rate/rhythm Gastrointestinal/Abdomen Exam: soft, normal bowel sounds SpO2: 100 Ordered Tests: Active Orders 24 hr Category Date Time Status CHEST 1 VIEW (PORTABLE) Stat Exams 05/26/24 09:59 Completed CBC W DIFF Stat Lab 05/26/24 10:19 Completed CK-Creatinine Phosphokinase Stat Lab 05/26/24 10:19 Completed CMP Stat Lab 05/26/24 10:19 Completed LIPASE Stat Lab 05/26/24 10:19 Completed NT PRO BNPII Stat Lab 05/26/24 10:19 Completed TROPONIN Q4H Lab 05/26/24 10:19 Completed TROPONIN Q4H Lab 05/26/24 12:20 Completed TROPONIN Q4H Lab 05/26/24 18:00 Ordered Lab/Rad Data: Laboratory Result Diagrams 05/26/24 10:19 05/26/24 10:19 Laboratory Results 05/26/24 05/26/24 05/26/24 Range/Units 12:20 10:19 10:19 WBC (4.23-9.07) x10^3/uL RBC (4.63-6.08) x10^6/uL Hgb (13.7-17.5) g/dL Hct (40.1-51.0) % MCV (79.0-92.2) fL MCH (25.7-32.2) pg MCHC (32.3-36.5) g/dL RDW (11.6-14.4) % Plt Count (163-337) x10^3/uL MPV (9.4-12.4) fL Gran % (34.0-67.9) % Immature Gran % (Auto) (0.001-0.429) % Nucleat RBC Rel Count (0.00-0.2) % Eos # (Auto) (0.04-0.54) x10^3/uL Immature Gran # (Auto) (0.001-0.031) x10^3u/L Absolute Lymphs (auto) (1.32-3.57) x10^3/uL Absolute Monos (auto) (0.30-0.82) x10^3/uL Absolute Nucleated RBC (0.00-0.012) x10^3u/L Lymphocytes % (21.8-53.1) % Monocytes % (5.3-12.2) % Eosinophils % (0.8-7.0) % Basophils % (0.2-1.2) % Absolute Granulocytes (1.78-5.38) x10^3/uL Basophils # (0.01-0.08) x10^3/uL Sodium (135-145) mmol/L Potassium (3.5-5.1) mmol/L Chloride (98-107) mmol/L Carbon Dioxide (22-30) mmol/L Anion Gap (5-15) MEQ/L BUN (9-20) mg/dL Creatinine (0.66-1.25) mg/dL Estimated GFR ML/MIN Glucose (74-106) mg/dL Calcium (8.4-10.2) mg/dL Total Bilirubin (0.2-1.3) mg/dL AST (17-59) U/L ALT (0-50) U/L Alkaline Phosphatase (38-126) U/L Creatine Kinase (55-170) U/L Troponin I < 0.012 (0.000-0.033) ng/mL NT-Pro-B Natriuret Pep (<300) pg/mL Serum Total Protein (6.3-8.2) g/dL Albumin (3.5-5.0) g/dL Lipase 169 (23-300) U/L Influenza Type A Ag NEGATIVE (NEGATIVE) Influenza Type B Ag NEGATIVE (NEGATIVE) RSV (PCR) NEGATIVE (NEGATIVE) SARS-CoV-2 (PCR) NEGATIVE (NEGATIVE) 05/26/24 05/26/24 05/26/24 Range/Units 10:19 10:19 10:19 WBC (4.23-9.07) x10^3/uL RBC (4.63-6.08) x10^6/uL Hgb (13.7-17.5) g/dL Hct (40.1-51.0) % MCV (79.0-92.2) fL MCH (25.7-32.2) pg MCHC (32.3-36.5) g/dL RDW (11.6-14.4) % Plt Count (163-337) x10^3/uL MPV (9.4-12.4) fL Gran % (34.0-67.9) % Immature Gran % (Auto) (0.001-0.429) % Nucleat RBC Rel Count (0.00-0.2) % Eos # (Auto) (0.04-0.54) x10^3/uL Immature Gran # (Auto) (0.001-0.031) x10^3u/L Absolute Lymphs (auto) (1.32-3.57) x10^3/uL Absolute Monos (auto) (0.30-0.82) x10^3/uL Absolute Nucleated RBC (0.00-0.012) x10^3u/L Lymphocytes % (21.8-53.1) % Monocytes % (5.3-12.2) % Eosinophils % (0.8-7.0) % Basophils % (0.2-1.2) % Absolute Granulocytes (1.78-5.38) x10^3/uL Basophils # (0.01-0.08) x10^3/uL Sodium 135 (135-145) mmol/L Potassium 4.6 (3.5-5.1) mmol/L Chloride 103 (98-107) mmol/L Carbon Dioxide 24 (22-30) mmol/L Anion Gap 12.7 (5-15) MEQ/L BUN 32 H (9-20) mg/dL Creatinine 6.67 H (0.66-1.25) mg/dL Estimated GFR 9.7 ML/MIN Glucose 126 H (74-106) mg/dL Calcium 8.6 (8.4-10.2) mg/dL Total Bilirubin 0.50 (0.2-1.3) mg/dL AST 21 (17-59) U/L ALT 16 (0-50) U/L Alkaline Phosphatase 96 (38-126) U/L Creatine Kinase 47 L (55-170) U/L Troponin I < 0.012 (0.000-0.033) ng/mL NT-Pro-B Natriuret Pep 6140 (<300) pg/mL Serum Total Protein 8.5 H (6.3-8.2) g/dL Albumin 3.7 (3.5-5.0) g/dL Lipase (23-300) U/L Influenza Type A Ag (NEGATIVE) Influenza Type B Ag (NEGATIVE) RSV (PCR) (NEGATIVE) SARS-CoV-2 (PCR) (NEGATIVE) 05/26/24 Range/Units 10:19 WBC 13.2 H (4.23-9.07) x10^3/uL RBC 3.33 L (4.63-6.08) x10^6/uL Hgb 8.7 L (13.7-17.5) g/dL Hct 28.9 L (40.1-51.0) % MCV 86.8 (79.0-92.2) fL MCH 26.1 (25.7-32.2) pg MCHC 30.1 L (32.3-36.5) g/dL RDW 16.0 H (11.6-14.4) % Plt Count 494 H (163-337) x10^3/uL MPV 8.5 L (9.4-12.4) fL Gran % 80.5 H (34.0-67.9) % Immature Gran % (Auto) 0.7 H (0.001-0.429) % Nucleat RBC Rel Count 0.0 (0.00-0.2) % Eos # (Auto) 0.38 (0.04-0.54) x10^3/uL Immature Gran # (Auto) 0.09 H (0.001-0.031) x10^3u/L Absolute Lymphs (auto) 1.45 (1.32-3.57) x10^3/uL Absolute Monos (auto) 0.55 (0.30-0.82) x10^3/uL Absolute Nucleated RBC 0.00 (0.00-0.012) x10^3u/L Lymphocytes % 11.0 L (21.8-53.1) % Monocytes % 4.2 L (5.3-12.2) % Eosinophils % 2.9 (0.8-7.0) % Basophils % 0.7 (0.2-1.2) % Absolute Granulocytes 10.59 H (1.78-5.38) x10^3/uL Basophils # 0.09 H (0.01-0.08) x10^3/uL Sodium (135-145) mmol/L Potassium (3.5-5.1) mmol/L Chloride (98-107) mmol/L Carbon Dioxide (22-30) mmol/L Anion Gap (5-15) MEQ/L BUN (9-20) mg/dL Creatinine (0.66-1.25) mg/dL Estimated GFR ML/MIN Glucose (74-106) mg/dL Calcium (8.4-10.2) mg/dL Total Bilirubin (0.2-1.3) mg/dL AST (17-59) U/L ALT (0-50) U/L Alkaline Phosphatase (38-126) U/L Creatine Kinase (55-170) U/L Troponin I (0.000-0.033) ng/mL NT-Pro-B Natriuret Pep (<300) pg/mL Serum Total Protein (6.3-8.2) g/dL Albumin (3.5-5.0) g/dL Lipase (23-300) U/L Influenza Type A Ag (NEGATIVE) Influenza Type B Ag (NEGATIVE) RSV (PCR) (NEGATIVE) SARS-CoV-2 (PCR) (NEGATIVE) - Progress Progress Note: patient here for evaluation of chest pain - he has some pain that is reproducible with palpation that is typical of the symptoms he is experiencing and are suggestive of a pleuritic nature I attempted to update the patient he is fast asleep in the room 05/26/24 12:49 I went into the patient's room to update him with his negative troponin he is fast asleep and snoring he denies any chest pain at this time. I will page his stake setter to update him with the results and arrange for outpatient dialysis treatment. Patient has no further questions at this time and wants to go home as he does not have any chest pain 05/26/24 13:38 Medical Desision Making - Discussion of managment Care discussed with:: specialist Reviewed:: Test results Agreed on:: need for follow-up Will see patient: In office - Departure Departure Disposition: Extended Care Facility Clinical Impression: Renal failure, ESRD needing dialysis, ESRD (end stage renal disease), Chest pain Condition: Good Critical Care Time: No Referrals: RENEE DA SILVA MD [Primary Care Provider] - Follow up/PCP as directed Instructions: Hemodialysis, End-stage kidney disease (kidney failure), Chest pain in adults - ED discharge instructions
[2024-05-26 13:40] VITALS: O2SAT 100
[2024-05-26 14:01] VITALS: PULSE 77
[2024-05-26 14:02] VITALS: BP 172/84; RESP 16
== END 2024-05-26 14:20 | disposition home or self-care (01) ==
LOC: ED 09:54
DX: R07.9 Chest pain, unspecified (principal); I12.0 Hypertensive chronic kidney disease with stage 5 chronic kidney disease or end stage renal disease; E11.22 Type 2 diabetes mellitus with diabetic chronic kidney disease; N18.6 End stage renal disease; E78.5 Hyperlipidemia, unspecified; Z79.84 Long term (current) use of oral hypoglycemic drugs; Z79.85 Long-term (current) use of injectable non-insulin antidiabetic drugs; Z79.4 Long term (current) use of insulin; Z79.899 Other long term (current) drug therapy; Z99.2 Dependence on renal dialysis
CPT/HCPCS: 0241U; 36415; 71045; 80053; 82550; 83690; 83880; 84484; 85025; 99285; 99283

== ENCOUNTER 2024-06-04 10:24 | Emergency (ER) | payer MEDICARE ==
[2024-06-04 10:42] VITALS: TEMP 98
--- NOTE | 2024-06-04 10:57 | ERPHSYRPT ---
- History of Present Illness Time Seen by Provider: 06/04/24 10:27 Source: patient, EMS Exam Limitations: no limitations Patient Subjective Stated Complaint: Back pain Triage Nursing Assessment: Patient brought into ED per EMS and transferred to be d with assist of 2. Patient A+O X 3. Patient's skin pink, warm and dry. Patient complains of right lower back pain 10/10 for the past couple of days. Patient states he feels a muscle spasm to right lower back. Patient denies injury or trauma. Physician History: 44-year-old male with multiple medical problems including history of hypertension, hyperlipidemia, diabetes mellitus ESRD on dialysis, chronic back pain presented in the ER with worsening pain in the right lower back. Patient reports he has been taking his routine [place]'s with no significant relief. Patient report pain is always at the same spot and he thinks it is because of him being in the bed for too long. Patient denies any new numbness tingling or weakness of lower extremities. No loss of bowel control, no saddle anesthesia. Denies any fall or trauma. Patient reports he missed his dialysis last time and is scheduled for his dialysis today and wanted to have something for pain before he can go for dialysis and have an hour. Patient does not want any workup done but just pain medication so he can get through his dialysis today. Allergies/Adverse Reactions: No Known Drug Allergies Allergy (Verified 06/04/24 10:29) Home Medications: Clonidine HCl 0.1 mg [Clonidine 0.1 mg Tablet] 0.3 mg PO BID 12/19/23 [History] Dapagliflozin Propanediol [Farxiga] 5 mg PO DAILY 12/19/23 [History] Dulaglutide [Trulicity] 4.5 mg SQ WEEKLY 12/19/23 [History] Insulin Glargine [Lantus Insulin] 40 unit SQ BID 12/19/23 [History] lisinopriL [Zestril] 40 mg PO DAILY 12/19/23 [History] Hx Tetanus, Diphtheria Vaccination/Date Given: Yes (Engerix-B 01/04/24) Hx Influenza Vaccination/Date Given: No (Patient refusal) Hx Pneumococcal Vaccination/Date Given: No Immunizations Up to Date: Yes Travel Risk - International Travel Have you traveled outside of the country in past 3 weeks: No - Emerging Infectious Disease Are you exhibiting symptoms associated with any current EIDs: No Symptoms: Other (Please Comment) Comment: Draining foot ulcers - Review of Systems Constitutional: No Symptoms Ears, Nose, & Throat: No Symptoms Respiratory: No Symptoms Cardiac: No Symptoms Abdominal/Gastrointestinal: No Symptoms Musculoskeletal: Arthralgias, Back Pain Skin: Skin Lesions Neurological: No Symptoms Hematologic/Lymphatic: No Symptoms - Past Medical History Pertinent Past Medical History: Yes Neurological History: No Pertinent History ENT History: Other Cardiac History: High Cholesterol, Hypertension Respiratory History: No Pertinent History Endocrine Medical History: Diabetes Type II GI Medical History: No Pertinent History History: Renal Disease Psycho-Social History: No Pertinent History Other Medical History: Retinopathy, legally blind, stage 5 disease kidney (hemodialyis patient that currently utilizes [facility] in [place], [place]). Patient indicates all of his specialists and hand clipper are from the [facility] other than his pressure supervisor. Foot Roentgenologist: Dr. Alejandro. 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 - Social History Smoking Status: Never smoker Exposure to second hand smoke: No Drug Use: none Patient Lives Alone: No - Social Determinants of Health Will the patient participate in the screening: Yes Do you worry about a steady place to live?: No Do you have any problems with any of the following?: No known problems In the past 12 months,have you had to go without utilities?: No Transportation Issues: No Has anyone in your support network made you feel unsafe?: No Have you or anyone in your house had to go without enough: No - Nursing Vital Signs Nursing Vital Signs: Initial Vital Signs Temperature 98.0 F 06/04/24 10:31 Pulse Rate 106 H 06/04/24 10:31 Respiratory Rate 20 06/04/24 10:31 Blood Pressure 173/106 06/04/24 10:31 O2 Sat by Pulse Oximetry 99 06/04/24 10:31 Pain Scale Pain Intensity 10 - Physical Exam General Appearance: no apparent distress Ears, Nose, Throat Exam: normal ENT inspection Neck Exam: normal inspection, full range of motion Respiratory Exam: normal breath sounds, lungs clear Cardiovascular Exam: regular rate/rhythm, normal heart sounds Back Exam: normal inspection, decreased range of motion, muscle spasm, point tenderness (Right sacroiliac area) Extremity Exam: swelling Neurologic Exam: alert, oriented x 3, cooperative Skin Exam: normal color SpO2 Interpretation: normal SpO2: 99 O2 Delivery: Room Air - Progress Progress: improved Progress Note: 06/04/24 11:19 4-year-old with history of ESRD on dialysis 3 times a week, hypertension, diabetes mellitus, chronic back pain is evaluated in the ER for right lower back pain for couple of days. Pain is better with lying in a certain position and it is 1 point which hurts with ambulation. Patient has been taking [place] with no significant relief. Patient does not want any workup done as he has a history of chronic back pain and no new fall or trauma and no cauda equina symptoms. Patient wants pain medication to get his dialysis done as he missed dialysis last time. He is given morphine, on reevaluation is feeling better. Stable for discharge. Discussed signs symptoms of worsening needing return to ER which he seems understanding. Counseled pt/family regarding: diagnosis, need for follow-up Medical Desision Making - Diagnostic Testing Diagnostic test were ordered, analyzed, and reviewed by me: No - Risk of complications The pt has a mod risk of morbidity or mortality based on: Need for prescription drug management - Departure Clinical Impression: Acute exacerbation of chronic low back pain Condition: Stable Critical Care Time: No Referrals: RENEE DA SILVA MD [Primary Care Provider] - Follow up with PCP 1 day Instructions: Low Back Pain (DC) Additional Instructions: Continue with your current pain medications. Follow-up with your primary care for reevaluation. Return to ER for any worsening pain or if having weakness numbness of lower extremities/loss of bowel or bladder control etc.
[2024-06-04] MEDS ORDERED: MORPHINE SULFATE 4 MG INJ ONE (10:59)
[2024-06-04] MEDS: MORPHINE SULFATE 4 MG INJ IM ONE (11:00)
[2024-06-04 11:34] VITALS: BP 177/85; RESP 18
[2024-06-04 11:47] VITALS: PULSE 90; O2SAT 98
== END 2024-06-04 11:52 | disposition home or self-care (01) ==
LOC: ED 10:24
DX: G89.29 Other chronic pain (principal); M54.50 Low back pain, unspecified; I12.0 Hypertensive chronic kidney disease with stage 5 chronic kidney disease or end stage renal disease; E11.22 Type 2 diabetes mellitus with diabetic chronic kidney disease; N18.6 End stage renal disease; E78.5 Hyperlipidemia, unspecified; Z79.84 Long term (current) use of oral hypoglycemic drugs; Z79.85 Long-term (current) use of injectable non-insulin antidiabetic drugs; Z79.4 Long term (current) use of insulin; Z79.899 Other long term (current) drug therapy
CPT/HCPCS: 96372; 99282; 99283; J2270

== ENCOUNTER 2024-06-06 15:56 | Emergency (ER) | payer MEDICARE ==
--- NOTE | 2024-06-06 16:01 | ERPHSYRPT ---
- History of Present Illness Time Seen by Provider: 06/06/24 16:01 Source: patient, EMS, old records Exam Limitations: no limitations Physician History: This is a 44-year-old white male patient who is on a Sunday hemodialysis schedule who was brought to the emergency department by the communications department chairperson service after his full dialysis session secondary to high blood pressure and localized, nonradiating substernal, central chest pain. Patient states he has had chronic intermittent chest pain and he has never seen a exam proctor. Patient has a history of hypertension, hyperlipidemia, insulin- dependent diabetes. He has chronic low back pain. He was seen here on 06/04/2024 secondary to acute exacerbation of chronic low back pain. Patient's movement assembler is Dr. Alejandro. I did review and interpret the labs that were drawn on 05/26/2024. Patient had BUN/creatinine 32/6.67 which corresponded with a GFR of 9.7. His potassium is 4.6. Magnesium is 1.5. The BNP was 6140 and the troponin level was less than 0.012 Quality: sharpness Location: substernal, central Chest Pain Radiation: no radiation Severity of Pain-Max: mild Severity of Pain-Current: mild Modifying Factors: Improves With: nothing Nitro Today/Relief: no nitro taken today Aspirin Treatment Today: no aspirin today, 81 mg x 4, provided by ED Associated Symptoms: chest pain Prior Chest Pain/Cardiac Workup: no prior cardiac workup Allergies/Adverse Reactions: No Known Drug Allergies Allergy (Verified 06/06/24 16:06) Home Medications: Clonidine HCl 0.1 mg [Clonidine 0.1 mg Tablet] 0.3 mg PO BID 12/19/23 [History] Dapagliflozin Propanediol [Farxiga] 10 mg PO DAILY 12/19/23 [History] Dulaglutide [Trulicity] 4.5 mg SQ WEEKLY 12/19/23 [History] Insulin Glargine [Lantus Insulin] 40 unit SQ BID 12/19/23 [History] lisinopriL [Zestril] 40 mg PO DAILY 12/19/23 [History] Hx Tetanus, Diphtheria Vaccination/Date Given: Yes (Engerix-B 01/04/24) Hx Influenza Vaccination/Date Given: No (Patient refusal) Hx Pneumococcal Vaccination/Date Given: No Travel Risk - Emerging Infectious Disease Are you exhibiting symptoms associated with any current EIDs: No Symptoms: Other (Please Comment) Comment: Draining foot ulcers - Review of Systems Constitutional: No Symptoms Eyes: No Symptoms Ears, Nose, & Throat: No Symptoms Respiratory: No Symptoms Cardiac: Chest Pain Abdominal/Gastrointestinal: No Symptoms Genitourinary Symptoms: No Symptoms Musculoskeletal: No Symptoms Skin: No Symptoms Neurological: No Symptoms Psychological: No Symptoms Endocrine: No Symptoms Hematologic/Lymphatic: No Symptoms Immunological/Allergic: No Symptoms All Other Systems: Reviewed and Negative - Past Medical History Pertinent Past Medical History: Yes Neurological History: No Pertinent History ENT History: Other Cardiac History: High Cholesterol, Hypertension Respiratory History: No Pertinent History Endocrine Medical History: Diabetes Type II GI Medical History: No Pertinent History History: Renal Disease Psycho-Social History: No Pertinent History Other Medical History: Retinopathy, legally blind, stage 5 disease kidney (hemodialyis patient that currently utilizes [facility] in [place], [place]). Patient indicates all of his specialists and freelance displayer are from the [facility] other than his movement assembler. Airset Molder: Dr. Alejandro. 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 - Social History Smoking Status: Never smoker Exposure to second hand smoke: No Drug Use: none Patient Lives Alone: No - Social Determinants of Health Will the patient participate in the screening: Yes Do you worry about a steady place to live?: No In the past 12 months,have you had to go without utilities?: No Transportation Issues: No Has anyone in your support network made you feel unsafe?: No Have you or anyone in your house had to go without enough: No - Nursing Vital Signs Nursing Vital Signs: Initial Vital Signs Temperature 99.4 F 06/06/24 15:57 Pulse Rate 129 H 06/06/24 15:57 Blood Pressure 161/98 06/06/24 15:57 O2 Sat by Pulse Oximetry 98 06/06/24 15:57 Pain Scale Pain Intensity 4 - Physical Exam General Appearance: no apparent distress, alert, obese Eye Exam: PERRL/EOMI Ears, Nose, Throat Exam: normal ENT inspection, moist mucous membranes Neck Exam: normal inspection, non-tender, supple, full range of motion Respiratory Exam: normal breath sounds, chest tenderness, lungs clear, airway intact, No respiratory distress Cardiovascular Exam: tachycardia Gastrointestinal/Abdomen Exam: soft, normal bowel sounds, No tenderness Rectal Exam: not done Back Exam: normal inspection, normal range of motion, No CVA tenderness, No vertebral tenderness Extremity Exam: normal inspection, normal range of motion, pelvis stable Neurologic Exam: alert, oriented x 3, cooperative, oliver filter operator II-XII nml as tested Skin Exam: normal color, warm, dry Lymphatic Exam: adenopathy SpO2 Interpretation: normal O2 Delivery: Room Air - Course Nursing assessment & vital signs reviewed: Yes EKG Interpreted by Me: RATE (125), Sinus Tach, prolonged QT interval, NORMAL QRS, NORMAL ST-T, Other (No acute ischemic changes on today's twelve-lead EKG.) Ordered Tests: Active Orders 24 hr Category Date Time Status Mobile Electronics Installer STAT Care 06/06/24 16:13 Active EKG-ER Only STAT Care 06/06/24 16:12 Active IV Insertion STAT Care 06/06/24 16:12 Active Pulse Oximetry (ED) STAT Care 06/06/24 16:12 Active CHEST 1 VIEW (PORTABLE) Stat Exams 06/06/24 16:12 Completed CBC W DIFF Stat Lab 06/06/24 16:30 Completed CMP Stat Lab 06/06/24 16:30 Completed MAG [MAGNESIUM] Stat Lab 06/06/24 16:30 Completed TROPONIN Q4H Lab 06/06/24 16:30 Completed TROPONIN Q4H Lab 06/06/24 18:35 Completed TROPONIN Q4H Lab 06/07/24 00:15 Ordered Medication Summary Discontinued Medications Generic Name Dose Route Start Last Admin Trade Name Freq PRN Reason Stop Dose Admin Aspirin 324 mg 06/06/24 16:12 06/06/24 16:33 Aspirin 81 Mg Tab.Chew PO 06/06/24 16:13 324 mg STAT ONE Administration Aspirin Confirm 06/06/24 16:30 Aspirin 81 Mg Tab.Chew Administered 06/06/24 16:31 Dose 324 mg .ROUTE .STK-MED ONE Enalaprilat 1.25 mg 06/06/24 16:52 06/06/24 19:36 Enalaprilat 2.5 Mg Injection IV 06/06/24 16:53 1.25 mg STAT ONE Administration Enalaprilat Confirm 06/06/24 19:35 Enalaprilat 2.5 Mg Injection Administered 06/06/24 19:36 Dose 2.5 mg IV .STK-MED ONE Morphine Sulfate 2 mg 06/06/24 16:12 06/06/24 16:32 Morphine Sulfate 2 Mg/Ml Inj IV 06/06/24 16:13 2 mg STAT ONE Administration Morphine Sulfate Confirm 06/06/24 16:30 Morphine Sulfate 2 Mg/Ml Inj Administered 06/06/24 16:31 Dose 2 mg .ROUTE .STK-MED ONE Ondansetron HCl 4 mg 06/06/24 16:12 06/06/24 16:32 Ondansetron Hcl 4 Mg/2 Ml Vial IV 06/06/24 16:13 4 mg STAT ONE Administration Ondansetron HCl Confirm 06/06/24 16:30 Ondansetron Hcl 4 Mg/2 Ml Vial Administered 06/06/24 16:31 Dose 4 mg .ROUTE .STK-MED ONE Lab/Rad Data: Laboratory Result Diagrams 06/06/24 16:30 06/06/24 16:30 Laboratory Results 06/06/24 06/06/24 06/06/24 Range/Units 18:35 16:30 16:30 WBC (4.23-9.07) x10^3/uL RBC (4.63-6.08) x10^6/uL Hgb (13.7-17.5) g/dL Hct (40.1-51.0) % MCV (79.0-92.2) fL MCH (25.7-32.2) pg MCHC (32.3-36.5) g/dL RDW (11.6-14.4) % Plt Count (163-337) x10^3/uL MPV (9.4-12.4) fL Gran % (34.0-67.9) % Immature Gran % (Auto) (0.001-0.429) % Nucleat RBC Rel Count (0.00-0.2) % Eos # (Auto) (0.04-0.54) x10^3/uL Immature Gran # (Auto) (0.001-0.031) x10^3u/L Absolute Lymphs (auto) (1.32-3.57) x10^3/uL Absolute Monos (auto) (0.30-0.82) x10^3/uL Absolute Nucleated RBC (0.00-0.012) x10^3u/L Lymphocytes % (21.8-53.1) % Monocytes % (5.3-12.2) % Eosinophils % (0.8-7.0) % Basophils % (0.2-1.2) % Absolute Granulocytes (1.78-5.38) x10^3/uL Basophils # (0.01-0.08) x10^3/uL Sodium (135-145) mmol/L Potassium (3.5-5.1) mmol/L Chloride (98-107) mmol/L Carbon Dioxide (22-30) mmol/L Anion Gap (5-15) MEQ/L BUN (9-20) mg/dL Creatinine (0.66-1.25) mg/dL Estimated GFR ML/MIN Glucose (74-106) mg/dL Calcium (8.4-10.2) mg/dL Magnesium 1.7 (1.6-2.3) mg/dL Total Bilirubin (0.2-1.3) mg/dL AST (17-59) U/L ALT (0-50) U/L Alkaline Phosphatase (38-126) U/L Troponin I 0.019 0.017 (0.000-0.033) ng/mL Serum Total Protein (6.3-8.2) g/dL Albumin (3.5-5.0) g/dL Slides for Path Review 06/06/24 06/06/24 Range/Units 16:30 16:30 WBC 7.7 (4.23-9.07) x10^3/uL RBC 3.58 L (4.63-6.08) x10^6/uL Hgb 9.6 L (13.7-17.5) g/dL Hct 31.0 L (40.1-51.0) % MCV 86.6 (79.0-92.2) fL MCH 26.8 (25.7-32.2) pg MCHC 31.0 L (32.3-36.5) g/dL RDW 16.2 H (11.6-14.4) % Plt Count 525 H (163-337) x10^3/uL MPV 8.3 L (9.4-12.4) fL Gran % 70.1 H (34.0-67.9) % Immature Gran % (Auto) 0.8 H (0.001-0.429) % Nucleat RBC Rel Count 0.0 (0.00-0.2) % Eos # (Auto) 0.26 (0.04-0.54) x10^3/uL Immature Gran # (Auto) 0.06 H (0.001-0.031) x10^3u/L Absolute Lymphs (auto) 0.57 L (1.32-3.57) x10^3/uL Absolute Monos (auto) 1.33 H (0.30-0.82) x10^3/uL Absolute Nucleated RBC 0.00 (0.00-0.012) x10^3u/L Lymphocytes % 7.4 L (21.8-53.1) % Monocytes % 17.3 H (5.3-12.2) % Eosinophils % 3.4 (0.8-7.0) % Basophils % 1.0 (0.2-1.2) % Absolute Granulocytes 5.41 H (1.78-5.38) x10^3/uL Basophils # 0.08 (0.01-0.08) x10^3/uL Sodium 132 L (135-145) mmol/L Potassium 3.8 (3.5-5.1) mmol/L Chloride 96 L (98-107) mmol/L Carbon Dioxide 26 (22-30) mmol/L Anion Gap 13.3 (5-15) MEQ/L BUN 10 (9-20) mg/dL Creatinine 2.84 H (0.66-1.25) mg/dL Estimated GFR 27.0 ML/MIN Glucose 177 H (74-106) mg/dL Calcium 8.8 (8.4-10.2) mg/dL Magnesium (1.6-2.3) mg/dL Total Bilirubin 0.80 (0.2-1.3) mg/dL AST 33 (17-59) U/L ALT 20 (0-50) U/L Alkaline Phosphatase 98 (38-126) U/L Troponin I (0.000-0.033) ng/mL Serum Total Protein 8.8 H (6.3-8.2) g/dL Albumin 4.2 (3.5-5.0) g/dL Slides for Path Review YES - Progress Progress: improved, re-examined Air Movement: good Progress Note: 06/06/24 16:16 My medical decision making and the assignment of moderate complexity to this patient's medical issue today is based on review of the patient's past medical history, review of the patient's medication list, reviewed patient drug allergy list, history present illness and physical findings on examination. The workup in this patient includes placement of intravenous line, CBC, CMP, magnesium level, troponin level, twelve-lead EKG and BNP level. We will provide the patient with 4 baby aspirin and 4 mg of intravenous Zofran and 2 mg of intravenous morphine. Patient may require IV Vasotec. Will wait another couple of readings before determining if the patient in fact requires an intravenous antihypertensive. 06/06/24 16:49 Differential diagnosis includes was not limited to myocardial infarction, arrhythmia, electrolyte abnormalities Chest x-ray was interpreted by the radiologist and I reviewed the impression. The impression states slightly underinflated chest x-ray film. No new or acute findings. 06/06/24 19:15 I interpreted the patient's repeat (second) twelve-lead EKG on 06/06/2024 at 1910. Heart rate has improved and is now 108 sinus tachycardia there is borderline prolonged QT interval QTc is 476. There is normal axis deviation and normal QRS. There is no evidence of acute ischemia. I interpreted the patient's laboratory data results. Based on the laboratory data results the patient does not have an acute or emergent medical issue. We are waiting for the repeat troponin level. Patient's chest pain has resolved. 06/06/24 19:36 Repeat troponin level was interpreted by me. This repeat level is also normal. Patient does not have a diagnosed history of coronary artery disease. Blood Culture(s) Obtained: No Antibiotics given: No Counseled pt/family regarding: lab results, diagnosis, rad results Medical Desision Making - Diagnostic Testing Diagnostic test were ordered, analyzed, and reviewed by me: Yes Radiological Interpretation: Interpreted by me, Teleradiologist Report - Risk of complications Low Risk: Low risk of morbidity from additional dx testing or treatment - Departure Departure Disposition: Home Clinical Impression: Hypertension, Nonspecific chest pain Condition: Stable Critical Care Time: No Referrals: RENEE DA SILVA MD [Primary Care Provider] - Follow up/PCP as directed
[2024-06-06 16:06] VITALS: TEMP 99.4
[2024-06-06] MEDS ORDERED: MORPHINE SULFATE 2 MG INJ ONE (16:30)
[2024-06-06] MEDS ORDERED: BABY ASPIRIN 81 MG CHEW ONE (16:30)
[2024-06-06] MEDS ORDERED: Zofran 4 MG/2 ML VIAL ONE (16:30)
[2024-06-06] MEDS: Zofran 4 MG/2 ML VIAL IV ONE (16:32)
[2024-06-06] MEDS: MORPHINE SULFATE 2 MG INJ IV ONE (16:32)
[2024-06-06 16:33] LABS: Absolute Neutrophil Ct (ANC) 5.41 x10^3/uL (1.78-5.38); Basophil (Absolute #) 0.08 x10^3/uL (0.01-0.08); Eosinophil % 3.4 % (0.8-7.0); Eosinophil (Absolute #) 0.26 x10^3/uL (0.04-0.54); Hemoglobin 9.6 g/dL (13.7-17.5); IMMATURE GRAN # 0.06 x10^3u/L (0.001-0.031); IMMATURE GRAN % 0.8 % (0.001-0.429); Lymphocyte (Absolute #) 0.57 x10^3/uL (1.32-3.57); Lymphocytes % 7.4 % (21.8-53.1); Mean Cell Volume 86.6 fL (79.0-92.2); Mean Corpuscular Hemoglobin 26.8 pg (25.7-32.2); Mean Platelet Volume 8.3 fL (9.4-12.4); Monocyte (Absolute #) 1.33 x10^3/uL (0.30-0.82); Monocytes % 17.3 % (5.3-12.2); Neutrophil % 70.1 % (34.0-67.9); Platelet Count 525 x10^3/uL (163-337); Red Blood Count 3.58 x10^6/uL (4.63-6.08); Red Cell Distribution Width 16.2 % (11.6-14.4); White Blood Count 7.7 x10^3/uL (4.23-9.07)
[2024-06-06] MEDS: BABY ASPIRIN 81 MG CHEW PO ONE (16:33)
--- NOTE | 2024-06-06 16:38 | XRAY ---
Indication: Chest pain. Comparison: May 26, 2024 Portable chest again slightly underinflated and clear. Heart not enlarged again with left double-lumen dialysis catheter. Bony thorax intact. No new/acute findings.
[2024-06-06 17:06] LABS: Slide Review 1 YES
[2024-06-06 17:17] LABS: ALBUMIN 4.2 g/dL (3.5-5.0); ANION GAP 13.3 MEQ/L (5-15); BILIRUBIN,TOTAL 0.8 mg/dL (0.2-1.3); Calcium 8.8 mg/dL (8.4-10.2); Creatinine 1 2.84 mg/dL (0.66-1.25); Potassium 3.8 mmol/L (3.5-5.1); Total Protein 8.8 g/dL (6.3-8.2)
[2024-06-06 19:27] VITALS: PULSE 107
[2024-06-06] MEDS ORDERED: ENALAPRILAT 2.5 MG INJECTION IV ONE (19:35)
[2024-06-06] MEDS: ENALAPRILAT 2.5 MG INJECTION IV ONE (19:36)
[2024-06-06 20:06] VITALS: BP 119/74; RESP 14; O2SAT 98
== END 2024-06-06 20:21 | disposition home or self-care (01) ==
LOC: ED 15:56
DX: R07.9 Chest pain, unspecified (principal); I12.0 Hypertensive chronic kidney disease with stage 5 chronic kidney disease or end stage renal disease; E11.22 Type 2 diabetes mellitus with diabetic chronic kidney disease; N18.6 End stage renal disease; E78.5 Hyperlipidemia, unspecified; Z79.4 Long term (current) use of insulin; Z79.84 Long term (current) use of oral hypoglycemic drugs; Z79.85 Long-term (current) use of injectable non-insulin antidiabetic drugs; Z79.899 Other long term (current) drug therapy; Z99.2 Dependence on renal dialysis
CPT/HCPCS: 36415; 71045; 80053; 83735; 84484; 85025; 93005; 93041; 94760; 96374; 96375; 99284; 99285; J2270; J2405; A9270-GY

== ENCOUNTER 2024-09-12 11:44 | Emergency (ER) | payer MEDICARE ==
[2024-09-12 11:53] VITALS: RESP 18; TEMP 97.3; O2SAT 100
--- NOTE | 2024-09-12 12:00 | ERPHSYRPT ---
- History of Present Illness Source: patient Exam Limitations: no limitations Patient Subjective Stated Complaint: Pt states "I was at dialysis and my right heel started to bleed and I need it rewrapped and driven back to dialysis" Triage Nursing Assessment: Pt presented alert and oriented X 3, skin pwd. pt able to speak in clear full senences. Pt resting comfortably on the bed. Pt right heel is slightly oozing blood. Physician History: Patient has a pressure ulcer on his right heel. It is being cared for by wound care. He is on antibiotics for it as well 2. Does not appear to be acutelyEmergent. It appears that everything is going as good as it can with this. He is getting appropriate outpatient care. It had started leaking a little blood today. This was while he was at dialysis. They called EMS and had him taken to the ER for a dressing change. The bleeding has since stopped.He basically just needs a dressing change. Associated Symptoms: none Allergies/Adverse Reactions: No Known Drug Allergies Allergy (Verified 06/06/24 16:06) Home Medications: Clonidine HCl 0.1 mg [Clonidine 0.1 mg Tablet] 0.3 mg PO BID 12/19/23 [History] Dapagliflozin Propanediol [Farxiga] 10 mg PO DAILY 12/19/23 [History] Dulaglutide [Trulicity] 4.5 mg SQ WEEKLY 12/19/23 [History] Insulin Glargine [Lantus Insulin] 40 unit SQ BID 12/19/23 [History] lisinopriL [Zestril] 40 mg PO DAILY 12/19/23 [History] Hx Tetanus, Diphtheria Vaccination/Date Given: Yes (Engerix-B 01/04/24) Hx Influenza Vaccination/Date Given: No (Patient refusal) Hx Pneumococcal Vaccination/Date Given: No Immunizations Up to Date: No Travel Risk - International Travel Have you traveled outside of the country in past 3 weeks: No - Emerging Infectious Disease Are you exhibiting symptoms associated with any current EIDs: No Symptoms: Other (Please Comment) Comment: Draining foot ulcers - Review of Systems Constitutional: No Symptoms Eyes: No Symptoms All Other Systems: Reviewed and Negative - Past Medical History Pertinent Past Medical History: Yes Neurological History: No Pertinent History ENT History: Other Cardiac History: High Cholesterol, Hypertension Respiratory History: No Pertinent History Endocrine Medical History: Diabetes Type II GI Medical History: No Pertinent History History: Renal Disease Psycho-Social History: No Pertinent History Other Medical History: Retinopathy, legally blind, stage 5 disease kidney (hemodialyis patient that currently utilizes [facility] in [place], [place]). Patient indicates all of his specialists and paper and prints restorer are from the [facility] other than his bracer. Motion Picture Operator: Dr. Alejandro. 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 - Social History Smoking Status: Never smoker Exposure to second hand smoke: No Drug Use: none - Social Determinants of Health Will the patient participate in the screening: Yes Do you worry about a steady place to live?: No Do you have any problems with any of the following?: No known problems In the past 12 months,have you had to go without utilities?: No Transportation Issues: No Has anyone in your support network made you feel unsafe?: No Have you or anyone in your house had to go w/o enough food: No - Nursing Vital Signs Nursing Vital Signs: Initial Vital Signs Temperature 97.3 F 09/12/24 11:47 Pulse Rate 69 09/12/24 11:47 Respiratory Rate 18 09/12/24 11:47 Blood Pressure 158/98 09/12/24 11:47 O2 Sat by Pulse Oximetry 100 09/12/24 11:47 Pain Scale Pain Intensity 0 - Physical Exam General Appearance: no apparent distress Legs Exam: bilateral leg: non-tender, normal inspection, normal range of motion Knees Exam: bilateral knee: non-tender, normal inspection, normal range of motion Ankle Exam: bilateral ankle: non-tender, normal inspection, normal range of motion Foot Exam: right foot: other (Large ulcerated area on his right heel. There is no evidence of infection at this time. Bleeding is well-controlled.) Mental Status Exam: alert, oriented x 3 Skin Exam: normal color SpO2: 100 - Progress Progress: improved Progress Note: I exposed the wound and examined it. It appears to be stable. There is no bleeding at this time.He has wound care people coming tomorrow that can redo the dressing. At this time just going to have wet-to-dry dressing put on there with the bulky 4 x 4's. His wound care team will see him in the morning to do what ever they want to do as far as a revision. 09/12/24 11:58 Medical Desision Making - Diagnostic Testing Diagnostic test were ordered, analyzed, and reviewed by me: No - Risk of complications Low Risk: Low risk of morbidity from additional dx testing or treatment - Departure Departure Disposition: Home Clinical Impression: Diabetic foot ulcer Condition: Stable Critical Care Time: No Referrals: RENEE DA SILVA MD [Primary Care Provider, [facility]] - Follow up/PCP as directed Instructions: Diabetic foot ulcer
[2024-09-12 12:18] VITALS: BP 161/87; PULSE 68
== END 2024-09-12 12:20 | disposition home or self-care (01) ==
LOC: ED 11:44
DX: E11.621 Type 2 diabetes mellitus with foot ulcer (principal); L97.418 Non-pressure chronic ulcer of right heel and midfoot with other specified severity; E11.22 Type 2 diabetes mellitus with diabetic chronic kidney disease; N18.6 End stage renal disease; Z79.84 Long term (current) use of oral hypoglycemic drugs; Z79.85 Long-term (current) use of injectable non-insulin antidiabetic drugs; Z79.4 Long term (current) use of insulin; Z79.899 Other long term (current) drug therapy
CPT/HCPCS: 99281

== ENCOUNTER 2025-01-28 12:37 | Emergency (ER) | payer MEDICARE ==
--- NOTE | 2025-01-28 12:51 | ERPHSYRPT ---
- History of Present Illness Time Seen by Provider: 01/28/25 12:40 Source: patient, EMS Physician History: As for similar productive cough over the last 3 days. He has a low-grade fever. Denies chest pain. States he feels minimally short of breath at times. Normal oxygenation on room air. Denies sick contacts. Patient states he ran dialysis about 30 minutes before they took him off because of his fever. He has peripheral vascular disease no new lower extremity wounds. Bilateral lower extremities are wrapped. Denies any urinary symptoms. Allergies/Adverse Reactions: No Known Drug Allergies Allergy (Verified 01/28/25 12:52) Home Medications: Clonidine HCl 0.1 mg [Clonidine 0.1 mg Tablet] 0.2 mg PO BID 12/19/23 [History] Dapagliflozin Propanediol [Farxiga] 10 mg PO DAILY 12/19/23 [History] Dulaglutide [Trulicity] 4.5 mg SQ WEEKLY 12/19/23 [History] Insulin Glargine [Lantus Insulin] 40 unit SQ BID 12/19/23 [History] lisinopriL [Zestril] 40 mg PO DAILY 12/19/23 [History] Aspirin 81 mg PO DAILY 11/07/24 [History] Hx Tetanus, Diphtheria Vaccination/Date Given: Yes (Engerix-B 01/04/24) Hx Influenza Vaccination/Date Given: No (Patient refusal) Hx Pneumococcal Vaccination/Date Given: No Travel Risk - Emerging Infectious Disease Are you exhibiting symptoms associated with any current EIDs: Yes Symptoms: Abdominal Pain, Cough: New Onset Comment: Cough started last week - Review of Systems Constitutional: Fever, No Chills Eyes: No Symptoms Ears, Nose, & Throat: No Symptoms Respiratory: Cough, No Dyspnea Cardiac: No Chest Pain, No Edema, No Syncope Abdominal/Gastrointestinal: No Abdominal Pain, No Nausea, No Vomiting, No Diarrhea Genitourinary Symptoms: No Dysuria Musculoskeletal: No Back Pain, No Neck Pain Skin: No Rash Neurological: No Dizziness, No Focal Weakness, No Sensory Changes Psychological: No Symptoms Endocrine: No Symptoms All Other Systems: Reviewed and Negative - Past Medical History Pertinent Past Medical History: Yes Neurological History: No Pertinent History ENT History: Other Cardiac History: Hypertension Respiratory History: No Pertinent History Endocrine Medical History: Diabetes Type II GI Medical History: No Pertinent History History: Renal Disease Psycho-Social History: No Pertinent History Other Medical History: Retinopathy, legally blind, stage 5 disease kidney (hemodialyis patient that currently utilizes [facility] in [place], [place]). Patient indicates all of his specialists and legal billing coordinator are from the [facility] other than his youth care worker. Risk Prevention Engineer: Dr. Alejandro. 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 - Social History Smoking Status: Never smoker Exposure to second hand smoke: No Drug Use: none - Social Determinants of Health Will the patient participate in the screening: Yes Do you worry about a steady place to live?: No In the past 12 months,have you had to go without utilities?: No Transportation Issues: No Has anyone in your support network made you feel unsafe?: No Have you or anyone in your house had to go w/o enough food: No - Nursing Vital Signs Nursing Vital Signs: Initial Vital Signs Temperature 99.3 F 01/28/25 12:38 Pulse Rate 92 H 01/28/25 12:38 Respiratory Rate 17 01/28/25 12:38 Blood Pressure 176/95 01/28/25 12:38 O2 Sat by Pulse Oximetry 98 01/28/25 12:38 Pain Scale Pain Intensity 0 - Physical Exam General Appearance: no apparent distress, alert Eye Exam: PERRL/EOMI, eyes nml inspection Ears, Nose, Throat Exam: normal ENT inspection, TMs normal, pharynx normal, moist mucous membranes Neck Exam: normal inspection, non-tender, supple, full range of motion Respiratory Exam: normal breath sounds, lungs clear, other (Sat 98% on room air, lungs clear unlabored), No respiratory distress Cardiovascular Exam: regular rate/rhythm, normal heart sounds, normal peripheral pulses Gastrointestinal/Abdomen Exam: soft, normal bowel sounds, No tenderness, No mass Back Exam: normal inspection, normal range of motion, No CVA tenderness, No vertebral tenderness Extremity Exam: other (Lower extremities are wrapped. No visible cellulitis. Cap refill intact distally.) Neurologic Exam: alert, oriented x 3, cooperative, normal mood/affect, nml cerebellar function, nml station & gait, sensation nml, No motor deficits Skin Exam: normal color, warm, dry, No rash Lymphatic Exam: No adenopathy SpO2 Interpretation: normal - Course EKG Interpreted by Me: Other (Sinus rhythm 90 borderline left axis deviation T wave abnormality) Ordered Tests: Active Orders 24 hr Category Date Time Status Isolation, Initiate & Maintain STAT Care 01/28/25 12:45 Active CHEST 1 VIEW (PORTABLE) Stat Exams 01/28/25 12:43 Completed BLOOD CULTURE Stat Lab 01/28/25 13:15 Received CBC Stat Lab 01/28/25 13:01 Completed CMP Stat Lab 01/28/25 13:01 Completed Lactic Acid Stat Lab 01/28/25 12:46 Completed PROCALCITONIN Stat Lab 01/28/25 13:01 Completed Lab/Rad Data: Laboratory Result Diagrams 01/28/25 13:01 01/28/25 13:01 Laboratory Results 01/28/25 01/28/25 01/28/25 Range/Units 13:17 13:01 13:01 WBC (4.23-9.07) x10^3/uL RBC (4.63-6.08) x10^6/uL Hgb (13.7-17.5) g/dL Hct (40.1-51.0) % MCV (79.0-92.2) fL MCH (25.7-32.2) pg MCHC (32.3-36.5) g/dL RDW (11.6-14.4) % Plt Count (163-337) x10^3/uL MPV (9.4-12.4) fL Sodium 134 L (135-145) mmol/L Potassium 5.0 (3.5-5.1) mmol/L Chloride 97 L (98-107) mmol/L Carbon Dioxide 15 L* (22-30) mmol/L Anion Gap 27.1 H (5-15) MEQ/L BUN 66 H (9-20) mg/dL Creatinine 10.97 H (0.66-1.25) mg/dL Estimated GFR 5.3 ML/MIN Glucose 128 H (74-106) mg/dL Lactic Acid (0.4-2.0) Calcium 8.3 L (8.4-10.2) mg/dL Total Bilirubin 1.20 (0.2-1.3) mg/dL AST 17 (17-59) U/L ALT 17 (0-50) U/L Alkaline Phosphatase 102 (38-126) U/L Serum Total Protein 8.3 H (6.3-8.2) g/dL Albumin 4.2 (3.5-5.0) g/dL Procalcitonin 2.220 H* (0.030-0.080) ng/mL Influenza Type A Ag NEGATIVE (NEGATIVE) Influenza Type B Ag NEGATIVE (NEGATIVE) RSV (PCR) NEGATIVE (NEGATIVE) SARS-CoV-2 (PCR) NEGATIVE (NEGATIVE) 01/28/25 01/28/25 Range/Units 13:01 12:46 WBC 17.3 H (4.23-9.07) x10^3/uL RBC 3.63 L (4.63-6.08) x10^6/uL Hgb 10.3 L (13.7-17.5) g/dL Hct 31.7 L (40.1-51.0) % MCV 87.3 (79.0-92.2) fL MCH 28.4 (25.7-32.2) pg MCHC 32.5 (32.3-36.5) g/dL RDW 14.9 H (11.6-14.4) % Plt Count 358 H (163-337) x10^3/uL MPV 9.1 L (9.4-12.4) fL Sodium (135-145) mmol/L Potassium (3.5-5.1) mmol/L Chloride (98-107) mmol/L Carbon Dioxide (22-30) mmol/L Anion Gap (5-15) MEQ/L BUN (9-20) mg/dL Creatinine (0.66-1.25) mg/dL Estimated GFR ML/MIN Glucose (74-106) mg/dL Lactic Acid 1.6 (0.4-2.0) Calcium (8.4-10.2) mg/dL Total Bilirubin (0.2-1.3) mg/dL AST (17-59) U/L ALT (0-50) U/L Alkaline Phosphatase (38-126) U/L Serum Total Protein (6.3-8.2) g/dL Albumin (3.5-5.0) g/dL Procalcitonin (0.030-0.080) ng/mL Influenza Type A Ag (NEGATIVE) Influenza Type B Ag (NEGATIVE) RSV (PCR) (NEGATIVE) SARS-CoV-2 (PCR) (NEGATIVE) - Progress Progress: improved Progress Note: 01/28/25 14:53 He had an elevated white blood cell count. His flu and COVID test were negative. His chest x-ray showed no pneumonia. He had an elevated Pro-Bao. Discussed with patient. He has had only isolated runny nose and cough symptoms for the last 4 days. He has no other systemic symptoms. His oxygenation is normal. He is not tachycardic. He is afebrile with normal blood pressure. Discussed with him he does not feel systemically ill only reporting cough symptoms at this time. I do believe that he that his x-ray is negative could be developing early pneumonia. I did reviewed his antibiotics with the pharmacist and I plan on covering it with outpatient Augmentin and azithromycin renal dosed at this time. I did discuss with him given his elevated white count and if he develops any systemic symptoms or feels worse she should return to the ER for recheck. I have blood cultures pending. he was comfortable with this discharge plan. - Departure Clinical Impression: Bronchitis Condition: Good Critical Care Time: No Referrals: RENEE DA SILVA MD [Primary Care Provider, [facility]] - Follow up/PCP as directed Additional Instructions: Been placed on 2 antibiotics you will take once a day for your respiratory infection. You need to keep follow-up with your dialysis for your next dialysis run. She return for difficulty breathing or worsening in symptoms. Keep follow-up with your doctor in this week. Prescriptions: Amox Tr/Potass Clav. 500 mg [Augmentin 500-125 Tablet] 1 each PO DAILY #5 tablet Azithromycin 250 mg PO DAILY 5 Days #5 tablet
[2025-01-28 13:29] LABS: Hematocrit 31.7 % (40.1-51.0); Hemoglobin 10.3 g/dL (13.7-17.5); Mean Corpuscular Hemoglobin 28.4 pg (25.7-32.2); Mean Corpuscular Hgb Concent. 32.5 g/dL (32.3-36.5); Platelet Count 358 x10^3/uL (163-337); Red Blood Count 3.63 x10^6/uL (4.63-6.08); White Blood Count 17.3 x10^3/uL (4.23-9.07)
[2025-01-28 13:43] LABS: Calcium 8.3 mg/dL (8.4-10.2); Creatinine 1 10.97 mg/dL (0.66-1.25); EST GLOMERULAR FILTRATION RATE 5.3 ML/MIN; Glucose 128.0 mg/dL (74-106); Potassium 5.0 mmol/L (3.5-5.1); SGOT/AST 17.0 U/L (17-59); SGPT/ALT 17.0 U/L (0-50); Total Protein 8.3 g/dL (6.3-8.2)
[2025-01-28 13:50] LABS: Carbon Dioxide 15.0 mmol/L (22-30)
[2025-01-28 14:05] LABS: INFLUENZA A NEGATIVE (NEGATIVE); INFLUENZA B NEGATIVE (NEGATIVE); RESPIRATORY SYNCTIAL VIRUS NEGATIVE (NEGATIVE); SARS-CoV-2 Xpert Express NEGATIVE (NEGATIVE)
--- NOTE | 2025-01-28 14:16 | XRAY ---
Indication: Fever. Comparison: November 07, 2024 Portable chest inflated and remains clear. Heart not enlarged again with left double-lumen dialysis catheter. Bony thorax intact. No new/acute findings.
[2025-01-28 14:37] VITALS: PULSE 87
[2025-01-28 15:04] VITALS: BP 146/70; RESP 18; TEMP 99.2; O2SAT 98
== END 2025-01-28 15:08 | disposition home or self-care (01) ==
LOC: ED 12:37
DX: J40 Bronchitis, not specified as acute or chronic (principal); R05.1 Acute cough; R50.9 Fever, unspecified; I12.0 Hypertensive chronic kidney disease with stage 5 chronic kidney disease or end stage renal disease; E11.22 Type 2 diabetes mellitus with diabetic chronic kidney disease; N18.5 Chronic kidney disease, stage 5; Z79.4 Long term (current) use of insulin; Z79.84 Long term (current) use of oral hypoglycemic drugs; Z79.85 Long-term (current) use of injectable non-insulin antidiabetic drugs; Z79.899 Other long term (current) drug therapy

== ENCOUNTER 2025-02-09 01:37 | Emergency (ER) | payer MEDICARE ==
[2025-02-09 01:53] VITALS: TEMP 97.7
--- NOTE | 2025-02-09 02:09 | ERPHSYRPT ---
- History of Present Illness Time Seen by Provider: 02/09/25 02:04 Source: patient Exam Limitations: no limitations Patient Subjective Stated Complaint: c/o chest pain Triage Nursing Assessment: patient brought to ED by ambulance with c/o chest pain that started yesterday and hasn't gone away. patient stated that the pain is non-rediating and he has continued to belch since yesterday. patient is a diabetic and gets dialysis, last dialysis was on Sunday. Patient received aspirin and nitro-paste, patient has a stent placed in November. s1 and s2 heard, skin w/n/d, afebrile, patient is on non-rebreather at this time due to feeling short of breath. patient has port in place. Timing/Duration: today Severity: mild Associated Symptoms: heartburn Allergies/Adverse Reactions: No Known Drug Allergies Allergy (Verified 02/09/25 01:53) Home Medications: Clonidine HCl 0.1 mg [Clonidine 0.1 mg Tablet] 0.2 mg PO BID 12/19/23 [History] Dapagliflozin Propanediol [Farxiga] 10 mg PO DAILY 12/19/23 [History] Dulaglutide [Trulicity] 4.5 mg SQ WEEKLY 12/19/23 [History] Insulin Glargine [Lantus Insulin] 40 unit SQ BID 12/19/23 [History] lisinopriL [Zestril] 40 mg PO DAILY 12/19/23 [History] Aspirin 81 mg PO DAILY 11/07/24 [History] Clopidogrel Bisulfate [Clopidogrel] 75 mg PO DAILY 02/09/25 [History] Famotidine 20 mg PO DAILY 02/09/25 [History] Metoprolol Succinate 25 mg PO DAILY 02/09/25 [History] Prasugrel HCL 10 MG [Prasugrel] 10 mg PO DAILY 02/09/25 [History] Hx Tetanus, Diphtheria Vaccination/Date Given: Yes (Engerix-B 01/04/24) Hx Influenza Vaccination/Date Given: No (Patient refusal) Hx Pneumococcal Vaccination/Date Given: No Travel Risk - International Travel Have you traveled outside of the country in past 3 weeks: No - Emerging Infectious Disease Are you exhibiting symptoms associated with any current EIDs: Yes Symptoms: Shortness of Breath Comment: Cough started last week - Review of Systems Constitutional: No Symptoms Eyes: No Symptoms Ears, Nose, & Throat: No Symptoms Respiratory: No Symptoms Cardiac: Chest Pain Abdominal/Gastrointestinal: Other (belching and burping) Genitourinary Symptoms: No Symptoms Musculoskeletal: No Symptoms Skin: No Symptoms Neurological: No Symptoms Psychological: No Symptoms Endocrine: No Symptoms - Past Medical History Pertinent Past Medical History: Yes Neurological History: No Pertinent History ENT History: Other Cardiac History: Hypertension Respiratory History: No Pertinent History Endocrine Medical History: Diabetes Type II GI Medical History: No Pertinent History History: Renal Disease Psycho-Social History: No Pertinent History Other Medical History: Retinopathy, legally blind, stage 5 disease kidney (hemodialyis patient that currently utilizes [facility] in [place], [place]). Patient indicates all of his specialists and associate professor of medicine are from the [facility] other than his relief charge nurse. Ui Engineer: Dr. Alejandro. 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 - Social History Smoking Status: Never smoker Exposure to second hand smoke: No Drug Use: none - Social Determinants of Health Will the patient participate in the screening: Yes Do you worry about a steady place to live?: No Do you have any problems with any of the following?: No known problems In the past 12 months,have you had to go without utilities?: No Transportation Issues: No Has anyone in your support network made you feel unsafe?: No Have you or anyone in your house had to go w/o enough food: No - Nursing Vital Signs Nursing Vital Signs: Initial Vital Signs Temperature 97.7 F 02/09/25 01:38 Pulse Rate 77 02/09/25 01:38 Respiratory Rate 21 02/09/25 01:38 Blood Pressure 150/84 02/09/25 01:38 O2 Sat by Pulse Oximetry 94 L 02/09/25 01:38 Pain Scale Pain Intensity 8 - Physical Exam General Appearance: no apparent distress Eye Exam: PERRL/EOMI Ears, Nose, Throat Exam: normal ENT inspection Respiratory Exam: crackles/rales (corase bs noted bibasilarly) Cardiovascular Exam: regular rate/rhythm Gastrointestinal/Abdomen Exam: soft, normal bowel sounds Extremity Exam: other (chronic changes noted to the lower ext) Neurologic Exam: alert, oriented x 3 Skin Exam: normal color SpO2: 94 - Course Nursing assessment & vital signs reviewed: Yes EKG Interpreted by Me: RATE, Sinus Rhythm Ordered Tests: Active Orders 24 hr Category Date Time Status Complex Manager STAT Care 02/09/25 01:57 Active IV Insertion STAT Care 02/09/25 02:36 Active Oxygen-ED Only Nasal Cannula 2 lpm Care 02/09/25 01:56 Active CHEST 1 VIEW (PORTABLE) Stat Exams 02/09/25 01:57 Taken CHEST WITHOUT CONTRAST [CT] Stat Exams 02/09/25 02:38 Completed BLOOD CULTURE Stat Lab 02/09/25 Ordered CBC W DIFF Stat Lab 02/09/25 02:18 Completed CMP Stat Lab 02/09/25 02:18 Completed Lactic Acid Stat Lab 02/09/25 04:41 Ordered MAGNESIUM Stat Lab 02/09/25 02:18 Completed NT PRO BNPII Stat Lab 02/09/25 02:18 Completed POCT GLUCOSE Stat Lab 02/09/25 02:39 Completed TROPONIN Q4H Lab 02/09/25 02:18 Completed TROPONIN Q4H Lab 02/09/25 06:00 Ordered TROPONIN Q4H Lab 02/09/25 10:00 Ordered Medication Summary Generic Name Dose Route Start Last Admin Trade Name Freq PRN Reason Stop Dose Admin Sodium Chloride 1,000 mls @ 100 mls/hr 02/09/25 02:00 02/09/25 02:43 Sodium Chloride 0.9% 1000 Ml IV 03/11/25 01:59 0 mls/hr .Q10H JULIUS Infusion INSULIN REGULAR IN 0.9 % NACL 100 unit in 100 mls @ 14.81 mls/hr 02/09/25 04:46 02/09/25 04:52 Myxredlin 100 Unit/100 Ml Bag IV 03/11/25 04:45 0.1 unit/kg/hr .Q6H46M PRN 14.81 mls/hr HYPERGLYCEMIA Administration Protocol 0.1 UNIT/KG/HR Piperacillin Sod/Tazobactam 100 mls @ 200 mls/hr 02/09/25 04:47 Sod 3.375 gm/ Sodium Chloride IV 02/09/25 05:16 STAT STA Azithromycin 500 mg/ Sodium 250 mls @ 250 mls/hr 02/09/25 04:47 Chloride IV 02/09/25 05:46 STAT STA Discontinued Medications Generic Name Dose Route Start Last Admin Trade Name Valorie PRN Reason Stop Dose Admin Morphine Sulfate 4 mg 02/09/25 02:09 02/09/25 02:31 Morphine Sulfate 4 Mg/Ml Injection IV 02/09/25 02:10 4 mg STAT ONE Administration Morphine Sulfate Confirm 02/09/25 02:23 Morphine Sulfate 4 Mg/Ml Injection Administered 02/09/25 02:24 Dose 4 mg .ROUTE .STK-MED ONE Ondansetron HCl 4 mg 02/09/25 02:09 02/09/25 02:25 Ondansetron Hcl 4 Mg/2 Ml Vial IV 02/09/25 02:10 4 mg STAT ONE Administration Ondansetron HCl Confirm 02/09/25 02:23 Ondansetron Hcl 4 Mg/2 Ml Vial Administered 02/09/25 02:24 Dose 4 mg .ROUTE .STK-MED ONE Lab/Rad Data: Laboratory Result Diagrams 02/09/25 02:18 02/09/25 02:18 Laboratory Results 02/09/25 02/09/25 02/09/25 Range/Units 04:41 02:39 02:18 WBC (4.23-9.07) x10^3/uL RBC (4.63-6.08) x10^6/uL Hgb (13.7-17.5) g/dL Hct (40.1-51.0) % MCV (79.0-92.2) fL MCH (25.7-32.2) pg MCHC (32.3-36.5) g/dL RDW (11.6-14.4) % Plt Count (163-337) x10^3/uL MPV (9.4-12.4) fL Gran % (34.0-67.9) % Immature Gran % (Auto) (0.001-0.429) % Nucleat RBC Rel Count (0.00-0.2) % Eos # (Auto) (0.04-0.54) x10^3/uL Immature Gran # (Auto) (0.001-0.031) x10^3u/L Absolute Lymphs (auto) (1.32-3.57) x10^3/uL Absolute Monos (auto) (0.30-0.82) x10^3/uL Absolute Nucleated RBC (0.00-0.012) x10^3u/L Lymphocytes % (21.8-53.1) % Monocytes % (5.3-12.2) % Eosinophils % (0.8-7.0) % Basophils % (0.2-1.2) % Absolute Granulocytes (1.78-5.38) x10^3/uL Basophils # (0.01-0.08) x10^3/uL Sodium (135-145) mmol/L Potassium (3.5-5.1) mmol/L Chloride (98-107) mmol/L Carbon Dioxide (22-30) mmol/L Anion Gap (5-15) MEQ/L BUN (9-20) mg/dL Creatinine (0.66-1.25) mg/dL Estimated GFR ML/MIN Glucose (74-106) mg/dL POC Glucometer 336 H (74 to 106) mg/dL Lactic Acid 1.4 (0.4-2.0) Calcium (8.4-10.2) mg/dL Magnesium (1.6-2.3) mg/dL Total Bilirubin (0.2-1.3) mg/dL AST (17-59) U/L ALT (0-50) U/L Alkaline Phosphatase (38-126) U/L Troponin I 0.016 (0.000-0.033) ng/mL NT-Pro-B Natriuret Pep (<300) pg/mL Serum Total Protein (6.3-8.2) g/dL Albumin (3.5-5.0) g/dL 02/09/25 02/09/25 Range/Units 02:18 02:18 WBC 13.9 H (4.23-9.07) x10^3/uL RBC 3.12 L (4.63-6.08) x10^6/uL Hgb 8.8 L (13.7-17.5) g/dL Hct 28.3 L (40.1-51.0) % MCV 90.7 (79.0-92.2) fL MCH 28.2 (25.7-32.2) pg MCHC 31.1 L (32.3-36.5) g/dL RDW 15.5 H (11.6-14.4) % Plt Count 505 H (163-337) x10^3/uL MPV 8.5 L (9.4-12.4) fL Gran % 75.2 H (34.0-67.9) % Immature Gran % (Auto) 1.1 H (0.001-0.429) % Nucleat RBC Rel Count 0.0 (0.00-0.2) % Eos # (Auto) 0.41 (0.04-0.54) x10^3/uL Immature Gran # (Auto) 0.15 H (0.001-0.031) x10^3u/L Absolute Lymphs (auto) 1.76 (1.32-3.57) x10^3/uL Absolute Monos (auto) 1.07 H (0.30-0.82) x10^3/uL Absolute Nucleated RBC 0.00 (0.00-0.012) x10^3u/L Lymphocytes % 12.7 L (21.8-53.1) % Monocytes % 7.7 (5.3-12.2) % Eosinophils % 2.9 (0.8-7.0) % Basophils % 0.4 (0.2-1.2) % Absolute Granulocytes 10.46 H (1.78-5.38) x10^3/uL Basophils # 0.05 (0.01-0.08) x10^3/uL Sodium 130 L (135-145) mmol/L Potassium 4.8 (3.5-5.1) mmol/L Chloride 96 L (98-107) mmol/L Carbon Dioxide 19 L (22-30) mmol/L Anion Gap 19.4 H (5-15) MEQ/L BUN 67 H (9-20) mg/dL Creatinine 8.17 H (0.66-1.25) mg/dL Estimated GFR 7.6 ML/MIN Glucose 401 H (74-106) mg/dL POC Glucometer (74 to 106) mg/dL Lactic Acid (0.4-2.0) Calcium 8.6 (8.4-10.2) mg/dL Magnesium 1.7 (1.6-2.3) mg/dL Total Bilirubin 0.30 (0.2-1.3) mg/dL AST 24 (17-59) U/L ALT 23 (0-50) U/L Alkaline Phosphatase 104 (38-126) U/L Troponin I (0.000-0.033) ng/mL NT-Pro-B Natriuret Pep 8950 (<300) pg/mL Serum Total Protein 8.4 H (6.3-8.2) g/dL Albumin 3.9 (3.5-5.0) g/dL - Progress Progress Note: Patient was seen and evaluated for chest pain EKG was reviewed this revealed no acute findings chest pain protocol was initiated he was given aspirin and nitroglycerin enroute. He has some improvement of his symptoms 02/09/25 02:07 02/09/25 05:01 ct scan was obtained this revealed There is evidence of scattered nodular lesions in left lung, with central tiny cavitation noted in the lingula and left lower lobe. The largest measures approximately 25 x 24 mm. There is an increase in number and size as compared to prior. In the differential diagnosis, TB infection, septic emboli, pneumatocele with fungus ball (such as aspergilloma), and systemic diseases such as polyangiitis should be considered. Please correlate clinically. A few subcentimeter-sized to mildly prominent, partially calcified lymph nodes are noted at the prevascular, pretracheal, paratracheal, and subcarinal regions, which are stable. patient was updated with the results of the CT scan he was informed of the need for transfer to a tertiary care center for further evaluation and treatment he is agreeable. He is not requiring any increased oxygen compared to previous and is resting comfortably. Blood cultures and lactic acid were ordered antibiotics were ordered. His labs were evaluated he was placed on insulin drip for mild DKA. He was informed of the need for dialysis today which is scheduled today I spoke to Dr. Iyer with the ED physician at [facility] he will accept the patient as a transfer he was updated with the patient's lab results current vital signs and CT results 02/09/25 05:08 Medical Desision Making - Discussion of managment Care discussed with:: specialist Agreed on:: decision to admit Will see patient: in ED - Departure Departure Disposition: Transfer ([facility]) Clinical Impression: Cavitary lesion of lung, ESRD needing dialysis, Weakness, Nonspecific chest pain, Skin ulcers of both feet, Chest pain, Hyperglycemia Condition: Good Critical Care Time: Yes Critical Care Time(excluding separately billable procedures): Critical 30-74 mins Referrals: RENEE DA SILVA MD [Primary Care Provider, [facility]] - Follow up/PCP as directed
[2025-02-09 02:20] LABS: BASOPHIL % 0.4 % (0.2-1.2); Basophil (Absolute #) 0.05 x10^3/uL (0.01-0.08); Eosinophil (Absolute #) 0.41 x10^3/uL (0.04-0.54); Hematocrit 28.3 % (40.1-51.0); Hemoglobin 8.8 g/dL (13.7-17.5); IMMATURE GRAN # 0.15 x10^3u/L (0.001-0.031); IMMATURE GRAN % 1.1 % (0.001-0.429); Lymphocyte (Absolute #) 1.76 x10^3/uL (1.32-3.57); Mean Corpuscular Hemoglobin 28.2 pg (25.7-32.2); Mean Corpuscular Hgb Concent. 31.1 g/dL (32.3-36.5); Monocyte (Absolute #) 1.07 x10^3/uL (0.30-0.82); NUCLEATED RBC # 0.00 x10^3u/L (0.00-0.012); NUCLEATED RBC % 0.0 % (0.00-0.2); Platelet Count 505 x10^3/uL (163-337); Red Blood Count 3.12 x10^6/uL (4.63-6.08); White Blood Count 13.9 x10^3/uL (4.23-9.07)
[2025-02-09] MEDS ORDERED: Zofran 4 MG/2 ML VIAL ONE (02:23)
[2025-02-09] MEDS ORDERED: MORPHINE SULFATE 4 MG INJ ONE (02:23)
[2025-02-09] MEDS: Zofran 4 MG/2 ML VIAL IV ONE (02:25)
[2025-02-09] MEDS: MORPHINE SULFATE 4 MG INJ IV ONE (02:31)
[2025-02-09 02:42] LABS: Calcium 8.6 mg/dL (8.4-10.2); Carbon Dioxide 19.0 mmol/L (22-30); Creatinine 1 8.17 mg/dL (0.66-1.25); EST GLOMERULAR FILTRATION RATE 7.6 ML/MIN; Glucose 401.0 mg/dL (74-106); NT PRO BNPII 8950.0 pg/mL (<300); Potassium 4.8 mmol/L (3.5-5.1); SGOT/AST 24.0 U/L (17-59); SGPT/ALT 23.0 U/L (0-50); Total Protein 8.4 g/dL (6.3-8.2)
--- NOTE | 2025-02-09 03:30 | XRAY ---
CLINICAL HISTORY: chest pain and sob COMPARISON: Jan 04:22:30 STABLE HAND TECHNIQUE: Contiguous axial images were obtained from the neck base through the upper abdomen without contrast. In addition, sagittal and coronal reconstructions were performed to potentially increase the sensitivity for the detection of disease. The CT scan was performed according to ALARA (as low as reasonably achievable). FINDINGS: There is evidence of scattered nodular lesions in left lung, with central tiny cavitation noted in the lingula and left lower lobe. The largest measures approximately 25 x 24 mm. A few subcentimeter-sized to mildly prominent, partially calcified lymph nodes are noted at the prevascular, pretracheal, paratracheal, and subcarinal regions. The central airways are patent. There are no pleural effusions. No pneumothorax is seen. Evaluation of the mediastinum and chasity is limited due to the lack of intravenous contrast. The thyroid is unremarkable. The heart, aorta, and pulmonary arteries are of normal size and configuration. There are no appreciable coronary artery or aortic atherosclerotic calcifications. No pericardial effusion is identified. Imaged portions of the upper abdomen are unremarkable. No aggressive appearing osseous lesions are identified. IMPRESSION: There is evidence of scattered nodular lesions in left lung, with central tiny cavitation noted in the lingula and left lower lobe. The largest measures approximately 25 x 24 mm. There is an increase in number and size as compared to prior. In the differential diagnosis, TB infection, septic emboli, pneumatocele with fungus ball (such as aspergilloma), and systemic diseases such as polyangiitis should be considered. Please correlate clinically. A few subcentimeter-sized to mildly prominent, partially calcified lymph nodes are noted at the prevascular, pretracheal, paratracheal, and subcarinal regions, which are stable. Electronically Signed by: Vivek Graham MD. (02/09/2025 03:28:40 EDT)
[2025-02-09] MEDS ORDERED: MYXREDLIN 100 UNIT/100 ML BAG 100 UNIT/100 ML PLAST..BAG IV ONE (04:51)
[2025-02-09] MEDS: MYXREDLIN 100 UNIT/100 ML BAG 100 UNIT/100 ML PLAST..BAG IV PRN (04:52)
[2025-02-09] MEDS ORDERED: PIPERACILLIN/TAZOBACTAM IV ONE (05:55)
[2025-02-09 06:10] VITALS: BP 180/76; PULSE 71; RESP 16; O2SAT 100
[2025-02-09] MEDS: ZITHROMAX IV*** 500 MG in Sodium Chloride 0.9% 250 ML 250 ML IV STA (06:42)
--- NOTE | 2025-02-09 08:43 | XRAY ---
Indication: Chest pain. Comparison: January 28, 2025 Portable chest now demonstrates 1.6 cm round left lung base indeterminate nodule, previously obscured by dialysis catheter. CT chest may yield further information. Remaining heart and bony thorax unremarkable.
== END 2025-02-09 06:15 | disposition home or self-care (01) ==
LOC: ED 01:37
DX: J98.4 Other disorders of lung (principal); I12.0 Hypertensive chronic kidney disease with stage 5 chronic kidney disease or end stage renal disease; E11.22 Type 2 diabetes mellitus with diabetic chronic kidney disease; N18.6 End stage renal disease; R53.1 Weakness; R07.9 Chest pain, unspecified; L97.529 Non-pressure chronic ulcer of other part of left foot with unspecified severity; L97.519 Non-pressure chronic ulcer of other part of right foot with unspecified severity; J18.9 Pneumonia, unspecified organism; E11.10 Type 2 diabetes mellitus with ketoacidosis without coma; Z99.2 Dependence on renal dialysis; Z79.84 Long term (current) use of oral hypoglycemic drugs; Z79.85 Long-term (current) use of injectable non-insulin antidiabetic drugs; Z79.4 Long term (current) use of insulin; Z79.02 Long term (current) use of antithrombotics/antiplatelets; Z79.899 Other long term (current) drug therapy

== ENCOUNTER 2025-02-25 13:42 | Emergency (ER) | payer MEDICARE ==
[2025-02-25 14:09] VITALS: TEMP 98.1
--- NOTE | 2025-02-25 14:38 | ERPHSYRPT ---
- History of Present Illness Time Seen by Provider: 02/25/25 14:20 Source: patient Exam Limitations: no limitations Patient Subjective Stated Complaint: patient states that he has had back pain/muscle spasms for the past 4 days, patient states he had been laying in bed from previously being sick and thinks it may be due to inactivity Triage Nursing Assessment: patient presents to ed via ems, patient able to transfer self from cot to bed, patient alert and oriented x 4, skin p/w/d, patient complains of left mid back pain, patient describes pain as sharp with intermittent back spasms, patient guarding left side of back, denies chest pain/sob, patient has no bruising/deformities noted to back, patient has complaints of tenderness upon palpation to left mid back Physician History: patient comes to the emergency room due to back pain located on the right lower back. Patient has history of sciatica going on for years has history of degenerative disc disease denies any trauma but started having severe back pain. Over the past couple days denies any urinary fecal incontinence denies any saddle anesthesia. Has not tried anything for the pain Timing/Duration: day(s) Quality: sharp Back Pain Location: lumbar spine Back Pain Radiation: lower legs Severity of Pain-Max: moderate Severity of Pain-Current: moderate Modifying Factors: Improves With: movement Associated Symptoms: denies symptoms Allergies/Adverse Reactions: No Known Drug Allergies Allergy (Verified 02/25/25 13:49) Home Medications: Clonidine HCl 0.1 mg [Clonidine 0.1 mg Tablet] 0.2 mg PO BID 12/19/23 [History] Dapagliflozin Propanediol [Farxiga] 10 mg PO DAILY 12/19/23 [History] Dulaglutide [Trulicity] 4.5 mg SQ WEEKLY 12/19/23 [History] Insulin Glargine [Lantus Insulin] 40 unit SQ BID 12/19/23 [History] lisinopriL [Zestril] 40 mg PO DAILY 12/19/23 [History] Aspirin 81 mg PO DAILY 11/07/24 [History] Clopidogrel Bisulfate [Clopidogrel] 75 mg PO DAILY 02/09/25 [History] Famotidine 20 mg PO DAILY 02/09/25 [History] Metoprolol Succinate 25 mg PO DAILY 02/09/25 [History] Prasugrel HCL 10 MG [Prasugrel] 10 mg PO DAILY 02/09/25 [History] Amlodipine Besylate 5 mg [Norvasc 5 mg] 10 mg PO DAILY 02/25/25 [History] Atorvastatin Calcium 40 mg PO HS 02/25/25 [History] Labetalol HCl 100 mg [Trandate 100 MG] 100 mg PO BID 02/25/25 [History] Hx Tetanus, Diphtheria Vaccination/Date Given: Yes (Engerix-B 01/04/24) Hx Influenza Vaccination/Date Given: No (Patient refusal) Hx Pneumococcal Vaccination/Date Given: No Travel Risk - International Travel Have you traveled outside of the country in past 3 weeks: No - Emerging Infectious Disease Are you exhibiting symptoms associated with any current EIDs: No Symptoms: Shortness of Breath Comment: Cough started last week - Review of Systems Constitutional: No Fever, No Chills Eyes: No Symptoms Respiratory: No Cough, No Dyspnea Cardiac: No Chest Pain, No Edema, No Syncope Abdominal/Gastrointestinal: No Abdominal Pain, No Nausea, No Vomiting, No Diarrhea Musculoskeletal: Back Pain - Past Medical History Pertinent Past Medical History: Yes Neurological History: No Pertinent History ENT History: Other Cardiac History: Hypertension Respiratory History: No Pertinent History Endocrine Medical History: Diabetes Type II GI Medical History: No Pertinent History History: Renal Disease Psycho-Social History: No Pertinent History Other Medical History: Retinopathy, legally blind, stage 5 disease kidney (hemodialyis patient that currently utilizes [facility] in [place], [place]). 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 Project Accountant: Dr. Alejandro. 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 stent placed - Social History Smoking Status: Never smoker Exposure to second hand smoke: No Drug Use: none - Social Determinants of Health Will the patient participate in the screening: Yes Do you worry about a steady place to live?: No Do you have any problems with any of the following?: No known problems In the past 12 months,have you had to go without utilities?: No Transportation Issues: No Has anyone in your support network made you feel unsafe?: No Have you or anyone in your house had to go w/o enough food: No - Nursing Vital Signs Nursing Vital Signs: Initial Vital Signs Temperature 98.1 F 02/25/25 13:42 Pulse Rate 75 02/25/25 13:42 Respiratory Rate 16 02/25/25 13:42 Blood Pressure 131/79 02/25/25 13:42 O2 Sat by Pulse Oximetry 98 02/25/25 13:42 Pain Scale Pain Intensity 10 - Physical Exam General Appearance: no apparent distress, alert Eye Exam: PERRL/EOMI, eyes nml inspection Respiratory Exam: normal breath sounds, lungs clear, No respiratory distress Cardiovascular Exam: regular rate/rhythm, normal heart sounds Gastrointestinal Exam: soft Back Exam: decreased range of motion, muscle spasm Neurologic Exam: alert, oriented x 3, cooperative Skin Exam: normal color, warm SpO2: 98 - Progress Progress Note: 02/25/25 14:35 Patient has chronic lower back pain comes in with flareup of back pain based on history physical examination I believe the patient suffering from muscle spasms and his degenerative disc disease is exaggerated at this time due to no trauma no signs of cauda equina syndrome patient does not require any new imaging but will be referred to orthopedics/back specialist for further evaluation and management. In the meantime patient will be given steroids and muscle relaxers. Patient is agreeable to the plan - Departure Clinical Impression: Acute exacerbation of chronic low back pain Condition: Good Critical Care Time: No Referrals: RENEE DA SILVA MD [Primary Care Provider, [facility]] - Follow up/PCP as directed Prescriptions: Cyclobenzaprine HCl 10 mg [Flexeril 10 MG] 10 mg PO TID #12 tablet Prednisone 10 mg [Deltasone 10 mg] 10 mg PO TID #12 tablet
[2025-02-25 15:07] VITALS: BP 135/92; PULSE 81; RESP 14; O2SAT 99
== END 2025-02-25 15:25 | disposition home or self-care (01) ==
LOC: ED 13:42
DX: G89.29 Other chronic pain (principal); M54.50 Low back pain, unspecified; I12.0 Hypertensive chronic kidney disease with stage 5 chronic kidney disease or end stage renal disease; E11.22 Type 2 diabetes mellitus with diabetic chronic kidney disease; N18.5 Chronic kidney disease, stage 5; Z79.84 Long term (current) use of oral hypoglycemic drugs; Z79.85 Long-term (current) use of injectable non-insulin antidiabetic drugs; Z79.4 Long term (current) use of insulin; Z79.02 Long term (current) use of antithrombotics/antiplatelets; Z79.899 Other long term (current) drug therapy